=== PATIENT | female | born 1960 | race African-American/Black ===

== ENCOUNTER 2016-09-11 06:03 | Emergency (ER) | payer MEDICAID ==
[~2016-09-11] VITALS: Ht 170.2 cm; Wt 76.2 kg
[~2016-09-11 06:03] MED LIST: ALBUTEROL SULF8.5 GM INH; ALBUTEROL2.5 MG/3 M HHN; AMBIEN10 MG ORAL; AMITRIPTYLINE H10 MG ORAL; AMOXICILLIN500 MG ORAL; AMOXICILLIN500 MG PO; ATIVAN0.5 MG ORAL; ATIVAN1 MG ORAL; AUGMENTIN 875-1 EAC1 ORAL; BENADRYL25 MG PO; BENADRYL50 MG ORAL; CIPROFLOXACIN500 M2 ORAL; CORTISPORIN EAR10 M1 BOTH EARS; CYCLOBENZAPRINE10 MG ORAL; DIPHENHYDRAMINE50 M1 PO; IBUPROFEN600 MG ORAL; IBUPROFEN600 MG PO; IBUPROFEN800 M1 PO; KEFLEX500 MG ORAL; KLONOPIN1 MG PO; NORCO 10-325 T1 EACH PO; NORCO 5-325 TA1 EACH ORAL; PERCOCET 5-3251 EACH ORAL; PHENAZOPYRIDIN200 MG ORAL; PROTONIX40 MG ORAL; RISPERDAL0.25 MG ORAL; TRAMADOL HCL50 MG ORAL; VALIUM5 MG PO; ZYPREXA10 M1 PO; ZYPREXA10 MG ORAL; ZYPREXA5 MG PO
[2016-09-11 06:15] VITALS: BP 130/96
[2016-09-11] MEDS ORDERED: Ketorolac 60mg Inj IM ONE (06:30)
[2016-09-11] MEDS ORDERED: TRAMADOL HCL50 MG ORAL (06:32)
[2016-09-11] MEDS ORDERED: PSEUDOEPHEDRINE60 MG PO (06:32)
--- NOTE | 2016-09-11 06:33 | Emergency Room Report ---
History of Present Illness General Chief Complaint: Headache Source: Patient Present Illness HPI This is a 55-year-old female with a history of anxiety and asthma. She presents with chief complaint of headache. She has congestion runny nose. Itchy eyes. Also asthma attack yesterday. Now complaining of diffuse headache. 10 out of 10. Throbbing in nature. She took codeine which did not help much. Benadryl help. Also take Advil. Denies any nausea vomiting. Denies any focal deficit. Allergies: Coded Allergies: CODEINE (Verified Allergy, Intermediate, Rash, 09/02/14) ASPIRIN (Verified Allergy, Mild, VOMITING, 09/02/14) MORPHINE (Verified Allergy, Unknown, 02/15/16) Patient History Past Medical History: see triage record, old chart reviewed, asthma, migraines Pertinent Family History: none Social History: Denies: smoking Now: No Immunizations: other Reviewed Nursing Documentation: PMH: Agreed, PSxH: Agreed Nursing Documentation-PMH Hx Cardiac Problems: No Hx Hypertension: No Hx Pacemaker: No Hx Asthma: Yes Hx Diabetes: No Hx Cancer: No Hx Gastrointestinal Problems: No Hx Dialysis: No History Of Psychiatric Problem: Yes - EXPLOSIVE BEHAVIOR DISORDER Hx Neurological Problems: No Hx Cerebrovascular Accident: No Hx Seizures: No Review of Systems Eye: Reports: nose pain, Denies: blurred vision, eye pain ENT: Reports: ear pain, Denies: nose congestion, throat swelling Respiratory: Reports: cough, Denies: shortness of breath Cardiovascular: Denies: chest pain, palpitations Gastrointestinal: Denies: abdominal pain, diarrhea, nausea, vomiting Musculoskeletal: Denies: back pain, joint pain Skin: Denies: rash Neurological: Reports: headache, Denies: numbness Endocrine: Denies: increased thirst, increased urine Hematologic/Lymphatic: Denies: easy bruising All Other Systems: negative except mentioned in HPI Physical Exam Vital Signs Date Time Temp Pulse Resp B/P Pulse Ox O2 Delivery O2 Flow Rate FiO2 09/11/16 06:12 98.2 95 18 135/94 93 Room Air vitals normal Sp02 EP Interpretation: reviewed, normal - Repeat pulse ox is 98% on room air General Appearance: well appearing, no apparent distress, alert Head: normocephalic, atraumatic Eyes: bilateral eye EOMI, bilateral eye PERRL ENT: hearing grossly normal, normal pharynx Neck: full range of motion, supple, no meningismus Respiratory: chest non-tender, lungs clear, normal breath sounds Cardiovascular #1: regular rate, rhythm, no murmur Gastrointestinal: normal bowel sounds, non tender, no mass, no organomegaly, no bruit, non-distended Musculoskeletal: back normal, gait/station normal, normal range of motion Neurologic: alert, oriented x3 Psychiatric: anxious Skin: warm/dry Medical Decision Making Diagnostic Impression: Primary Impression: Viral illness Additional Impressions: Sinus headache anxiety reaction ER Course She presents with a viral illness with a sinus headache. No red flags indicate meningitis, sepsis, pneumonia, bleed. We'll discharge home. She is extremely anxious. Told to take her anxiety medication. Last Vital Signs Date Time Temp Pulse Resp B/P Pulse Ox O2 Delivery O2 Flow Rate FiO2 09/11/16 06:12 98.2 95 18 135/94 93 Room Air Status: improved Disposition: HOME, SELF-CARE Condition: Stable Scripts Tramadol Hcl* (ULTRAM*) 50 Mg Tablet 50 MG ORAL Q6H Y for For Pain, #20 TAB 0 Refills Prov: DEXTER LAST M.D. 09/11/16 Pseudoephedrine Hcl* (SUDAFED*) 60 Mg Tablet 60 MG PO Q6H, #30 TAB Prov: DEXTER LAST M.D. 09/11/16 Patient Instructions: Sinus Headache Additional Instructions: Followup with your DrCaity in 2-3 days. Return if symptom worsen. DEXTER LAST M.D. Sep 11, 2016 06:33
[2016-09-11 06:50] VITALS: BP 126/92
== END 2016-09-11 06:50 | disposition home or self-care (01) ==
LOC: EMR 06:25
DX: B34.9 Viral infection, unspecified (principal); F41.9 Anxiety disorder, unspecified; J45.909 Unspecified asthma, uncomplicated; Z88.6 Allergy status to analgesic agent
CPT/HCPCS: 96372; 99284

== ENCOUNTER 2016-12-21 18:53 | Emergency (ER) | payer MEDICAID ==
[~2016-12-21] VITALS: Ht 170.2 cm; Wt 74.8 kg
[~2016-12-21 18:53] MED LIST changes: +PSEUDOEPHEDRINE60 MG PO
--- NOTE | 2016-12-21 19:23 | Emergency Room Report ---
History of Present Illness General Chief Complaint: General Complaint Source: Patient, Medical Record Present Illness HPI 56-year-old male presents emergency department complaining of nasal congestion, purulent rhinorrhea, and sinus pressure x8 days. Patient reports one month ago she had similar episode that resolved after 2 weeks of czcu-cgz-gobsjhy treatment however patient states her symptoms have returned. Patient also reports acute onset of small blisters inside the left nostril x4 days. Patient denies history of shingles or chickenpox. denies fevers or chills, denies neck pain/stiffness. Patient reports pain behind the eyes bilaterally that radiates up into the forehead pt reports increased lacrimation. Denies photophobia denies changes in vision. Denies CP, Palpitations, LOC, AMS, dizziness, Changes in Vision, Sensation, paresthesias, or a sudden severe headache. She reports severe tenderness/10 sensitivity to the lesions on the nose. Denies history of immunocompromise recent travel or ill contacts patient denies history of rash or lesions elsewhere. Allergies: Coded Allergies: CODEINE (Verified Allergy, Intermediate, Rash, 09/02/14) ASPIRIN (Verified Allergy, Mild, VOMITING, 09/02/14) MORPHINE (Verified Allergy, Unknown, 02/15/16) Patient History Past Medical History: see triage record Past Surgical History: none Pertinent Family History: none Now: No Immunizations: UTD Reviewed Nursing Documentation: PMH: Agreed, PSxH: Agreed Nursing Documentation-PMH Hx Cardiac Problems: No Hx Hypertension: No Hx Pacemaker: No Hx Asthma: Yes Hx Diabetes: No Hx Cancer: No Hx Gastrointestinal Problems: No Hx Dialysis: No Hx Neurological Problems: No Hx Cerebrovascular Accident: No Hx Seizures: No Review of Systems All Other Systems: negative except mentioned in HPI Physical Exam Vital Signs Date Time Temp Pulse Resp B/P Pulse Ox O2 Delivery O2 Flow Rate FiO2 12/21/16 19:03 97.9 86 16 147/92 99 Room Air Sp02 EP Interpretation: reviewed, normal General Appearance: no apparent distress, alert, GCS 15, non-toxic Head: normocephalic, atraumatic Eyes: left eye fluoroscene uptake - no fluoroscene uptake, no evidence of keratitis noted on slit lamp examination of pt. , bilateral eye EOMI, bilateral eye PERRL, bilateral eye normal inspection ENT: hearing grossly normal, normal pharynx, no angioedema, normal voice, nasal congestion, other - multiple vesicles noted to the left nare, and the left side of the tip of the nose, no lesions noted in the the right nare. the rash does not migrate. severe sensitivity and tenderness, mild crusting noted. Pt. also has TTP to the left maxillary and frontal sinuses. Neck: full range of motion, supple/symm/no masses Respiratory: chest non-tender, lungs clear, normal breath sounds, no wheezing, speaking full sentences Cardiovascular #1: regular rate, rhythm, no edema, normal capillary refill Musculoskeletal: back normal, gait/station normal, normal range of motion, non- tender Neurologic: alert, oriented x3, responsive, motor strength/tone normal, sensory intact, speech normal Psychiatric: judgement/insight normal, memory normal, mood/affect normal Skin: normal color, warm/dry, well hydrated, rash - several vesicular lesions noted in the left nare, clear crusting noted, mild erythema Lymphatic: no adenopathy Medical Decision Making PA Attestation Dr. Arce is my supervising Physician whom patient management has been discussed with. Diagnostic Impression: Primary Impression: Sinusitis, acute maxillary Qualified Codes: J01.01 - Acute recurrent maxillary sinusitis Additional Impression: Localized vesicular eruption ER Course Ddx considered but are not limited to URI, pneumonia, PE, strep pharyngitis, meningitis, sinusitis, zoster ophthalmicus, zoster, impetigo Vital signs: Pt. is afebrile, the remaining VS are WNL H&PE are most consistent with Re-current Sinusitis, and vesicular eruption of the left nare. ORDERS: none required at this time, the diagnosis is clinical ED INTERVENTIONS: -Fluorescein stain with slit lamp evaluation: no evidence of uptake, no evidence of keratitis/ dendritic lesions. pt. does not have photophobia upon slit lamp examination and mandujano lamp evaluation. -Tylenol 650mg PO --PT. EDUCATION: Discussed with pt. that I will be treating her for both sinusitis- recurrent and non-responsive to OTC medications for over 10 days, and with anti-virals as lesions are suspicious for zoster. D/w pt. proper follow up with PCP, and to return with worsening or new symptoms. DISCHARGE: At this time pt. is stable for d/c to home. Will provide printed patient care instructions, and any necessary prescriptions. Care plan and follow up instructions have been discussed with the patient prior to discharge. Last Vital Signs Date Time Temp Pulse Resp B/P Pulse Ox O2 Delivery O2 Flow Rate FiO2 12/21/16 19:03 97.9 86 16 147/92 99 Room Air Disposition: HOME, SELF-CARE Condition: Stable Scripts Pseudoephedrine Hcl* (NEXAFED*) 30 Mg Tablet 30 MG ORAL Q6H Y for congestion for 3 Days, #20 TAB Prov: Janice Rothman 12/21/16 Amoxicillin/Potassium Clav 875-125* (AUGMENTIN 875-125 TABLET*) 1 Each Tablet 1 TAB ORAL TWICE A DAY for 10 Days, #20 TAB Prov: Janice Rothman 12/21/16 Valacyclovir Hcl* (VALTREX*) 500 Mg Tablet 1000 MG ORAL Q8HR for 7 Days, #21 TAB Prov: Janice Rothman. 12/21/16 Patient Instructions: Shingles, [id number], Sinusitis, Adult, Kpsu-vp-[id number] Additional Instructions: Take medications as directed. Follow up with PCP in 3-5 days Return sooner to ED if new symptoms occur, or current symptoms become worse. - Please note that this Emergency Department Report was dictated using Plistenmultiple wire sawyer technology software, occasionally this can lead to erroneous entry secondary to interpretation by the dictation equipment. Janice Rothman December 21, 2016 19:23
[2016-12-21] MEDS ORDERED: Tetracaine 0.5% Opth Soln LEFT EYE ONE (19:45)
[2016-12-21] MEDS ORDERED: Fluorescein Strips LEFT EYE ONE (19:45)
[2016-12-21] MEDS ORDERED: AUGMENTIN 875-1 EAC1 ORAL (20:15)
[2016-12-21] MEDS ORDERED: VALACYCLOVIR500 MG ORAL (20:15)
[2016-12-21] MEDS ORDERED: NEXAFED30 MG ORAL (20:15)
[2016-12-21 20:35] VITALS: BP 147/92
== END 2016-12-21 20:35 | disposition home or self-care (01) ==
LOC: EMR 19:46
DX: J01.00 Acute maxillary sinusitis, unspecified (principal); R23.8 Other skin changes; J45.909 Unspecified asthma, uncomplicated; Z88.6 Allergy status to analgesic agent
CPT/HCPCS: 99284

== ENCOUNTER 2017-07-08 07:02 | Emergency (ER) | payer MEDICAID ==
[~2017-07-08] VITALS: Ht 170.2 cm; Wt 76.2 kg
[~2017-07-08 07:02] MED LIST changes: +NEXAFED30 MG ORAL; +VALACYCLOVIR500 MG ORAL
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
[2017-07-08] MEDS: Norco 5mg/325mg tab ORAL ONE (07:34)
[2017-07-08] MEDS ORDERED: NORCO 5-325 TA1 EACH ORAL (07:51)
[2017-07-08] MEDS ORDERED: IBUPROFEN600 MG ORAL (07:51)
[2017-07-08 08:24] VITALS: BP 148/87
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
== END 2017-07-08 08:25 | disposition home or self-care (01) ==
LOC: EMR 07:50
DX: S90.111A Contusion of right great toe without damage to nail, initial encounter (principal); X58.XXXA Exposure to other specified factors, initial encounter; Y92.89 Other specified places as the place of occurrence of the external cause; J45.909 Unspecified asthma, uncomplicated; Z88.6 Allergy status to analgesic agent
CPT/HCPCS: 29540; 99284

== ENCOUNTER 2017-07-28 05:05 | Emergency (ER) | payer MEDICAID ==
[~2017-07-28] VITALS: Ht 170.2 cm; Wt 74.8 kg
[2017-07-28 05:45] VITALS: BP 141/90
--- NOTE | 2017-07-28 06:56 | Emergency Room Report ---
History of Present Illness General Chief Complaint: Flu Like Symptoms Source: Patient, Medical Record Present Illness HPI The patient states she has had flulike symptoms for the past week. She describes sinus congestion, nasal congestion, cough and difficulty breathing. She states that she feels terrible. She does have a history of asthma. She has been taking [place] flu and Benadryl. She states she also developed some blisters around her nose. She denies sputum production. She does have some chest pain with coughing. She denies sore throat. She denies nausea or vomiting. She has no other complaints. Allergies: Coded Allergies: CODEINE (Verified Allergy, Intermediate, Rash, 09/02/14) ASPIRIN (Verified Allergy, Mild, VOMITING, 09/02/14) MORPHINE (Verified Allergy, Unknown, 02/15/16) Patient History Past Medical History: see triage record, asthma Past Surgical History: none Social History: Denies: smoking, alcohol use, drug use Last Menstrual Period: none Now: No : 1 Para: 1 Reviewed Nursing Documentation: PMH: Agreed, PSxH: Agreed Nursing Documentation-PMH Hx Cardiac Problems: No Hx Hypertension: No Hx Pacemaker: No Hx Asthma: Yes Hx Diabetes: No Hx Cancer: No Hx Gastrointestinal Problems: No Hx Dialysis: No Hx Neurological Problems: No Hx Cerebrovascular Accident: No Hx Seizures: No Review of Systems All Other Systems: negative except mentioned in HPI Physical Exam Vital Signs Date Time Temp Pulse Resp B/P (MAP) Pulse Ox O2 Delivery O2 Flow Rate FiO2 07/28/17 05:27 98.1 83 15 141/90 96 Room Air Sp02 EP Interpretation: reviewed, normal General Appearance: no apparent distress, alert, GCS 15, non-toxic Head: normocephalic, atraumatic Eyes: bilateral eye normal inspection, bilateral eye PERRL ENT: hearing grossly normal, normal pharynx, no angioedema, normal voice, TMs + canals normal, uvula midline, nasal congestion, other - vesicular lesions around nares, tenderness around of the frontal and maxillary sinuses. Neck: full range of motion, no meningismus, supple/symm/no masses Respiratory: chest non-tender, no respiratory distress, no retraction, no accessory muscle use, rhonchi, speaking full sentences Cardiovascular #1: regular rate, rhythm, no edema Gastrointestinal: normal bowel sounds, non tender, soft, non-distended, no guarding, no rebound Rectal: deferred Musculoskeletal: back normal, gait/station normal, normal range of motion, non- tender Neurologic: alert, oriented x3, responsive, motor strength/tone normal, sensory intact, speech normal Psychiatric: judgement/insight normal, memory normal, mood/affect normal, no suicidal/homicidal ideation Skin: normal color, no rash, warm/dry, well hydrated Medical Decision Making Diagnostic Impression: Primary Impression: Sinusitis Additional Impressions: Localized vesicular eruption Bronchitis Asthma exacerbation ER Course This patient has a clinical presentation consistent with influenza/sinusitis/ bronchitis and a viral syndrome. She also has sinusitis and bronchitis. Patient overall is nontoxic with no evidence of pneumonia on chest x-ray. There does not appear to be any emergency complications. She does have a history of asthma. I will put her on azithromycin for her sinusitis. This patient is nontoxic and has no respiratory distress. I do not feel this patient needs admission at this time. The patient stable vital signs. The patient given close return precautions and followup instructions. Laboratory Tests Test 07/28/17 07:20 White Blood Count 4.7 K/UL (4.8-10.8) L Red Blood Count 4.19 M/UL (4.20-5.40) L Hemoglobin 13.3 G/DL (12.0-16.0) Hematocrit 41.4 % (37.0-47.0) Mean Corpuscular Volume 99 FL (80-99) Mean Corpuscular Hemoglobin 31.7 PG (27.0-31.0) H Mean Corpuscular Hemoglobin Concent 32.1 G/DL (32.0-36.0) Red Cell Distribution Width 12.5 % (11.6-14.8) Platelet Count 268 K/UL (150-450) Mean Platelet Volume 7.1 FL (6.5-10.1) Neutrophils (%) (Auto) 45.8 % (45.0-75.0) Lymphocytes (%) (Auto) 38.2 % (20.0-45.0) Monocytes (%) (Auto) 10.3 % (1.0-10.0) H Eosinophils (%) (Auto) 3.3 % (0.0-3.0) H Basophils (%) (Auto) 2.6 % (0.0-2.0) H Sodium Level 140 MMOL/L (136-145) Potassium Level 4.3 MMOL/L (3.5-5.1) Chloride Level 105 MMOL/L (98-107) Carbon Dioxide Level 27 MMOL/L (21-32) Anion Gap 8 mmol/L (5-15) Blood Urea Nitrogen 18 mg/dL (7-18) Creatinine 1.0 MG/DL (0.55-1.30) Estimate Glomerular Filtration Rate > 60 mL/min (>60) Glucose Level 98 MG/DL (74-106) Calcium Level 9.3 MG/DL (8.5-10.1) Total Bilirubin 0.3 MG/DL (0.2-1.0) Aspartate Amino Transferase (AST) 20 U/L (15-37) Alanine Aminotransferase (ALT) 24 U/L (12-78) Alkaline Phosphatase 48 U/L (46-116) Total Protein 7.4 G/DL (6.4-8.2) Albumin 3.7 G/DL (3.4-5.0) Globulin 3.7 g/dL Albumin/Globulin Ratio 1.0 (1.0-2.7) Microbiology Date/Time Source Procedure Growth Status 07/28/17 07:20 Nasal Nares Influenza Types A,B Antigen (RIYA) - Final Complete EKG Diagnostic Results Rate: normal Rhythm: NSR ST Segments: no acute changes Rhythm Strip Diag. Results EP Interpretation: yes Rate: 70's Rhythm: NSR, no PVC's, no ectopy Chest X-Ray Diagnostic Results Chest X-Ray Diagnostic Results : Chest X-Ray Ordered: Yes # of Views/Limited/Complete: 1 View Indication: Shortness of Breath EP Interpretation: Yes Interpretation: no consolidation, no effusion, no pneumothorax, no acute cardiopulmonary disease Impression: No acute disease Electronically Signed by: Leandro Last Vital Signs Date Time Temp Pulse Resp B/P (MAP) Pulse Ox O2 Delivery O2 Flow Rate FiO2 07/28/17 05:27 98.1 83 15 141/90 96 Room Air Status: improved Disposition: HOME, SELF-CARE Condition: Improved Referrals: [facility],REFERRING (PCP) KOKO GONCALVES D.O. Jul 28, 2017 06:56
[2017-07-28] MEDS ORDERED: Ipratropium 0.02% Inh Soln 2.5ml UD HHN ONE (07:00)
[2017-07-28] MEDS ORDERED: Albuterol ud Inhalation HHN ONE (07:00)
[2017-07-28 07:32] VITALS: BP 134/81
[2017-07-28 07:36] LABS: BASOPHILS % (AUTO) 2.6 % (0.0-2.0); EOSINOPHILS % (AUTO) 3.3 % (0.0-3.0); LYMPHOCYTES % (AUTO) 38.2 % (20.0-45.0); MEAN CORPUSCULAR HEMOGLOBIN 31.7 PG (27.0-31.0); MEAN CORPUSCULAR HGB CONC 32.1 G/DL (32.0-36.0); MEAN CORPUSCULAR VOLUME 99 FL (80-99); MEAN PLATELET VOLUME 7.1 FL (6.5-10.1); MONOCYTES % (AUTO) 10.3 % (1.0-10.0); NEUTROPHILS % (AUTO) 45.8 % (45.0-75.0); PLATELET COUNT 268 K/UL (150-450); RED BLOOD COUNT 4.19 M/UL (4.20-5.40); RED CELL DISTRIBUTION WIDTH 12.5 % (11.6-14.8); WHITE BLOOD COUNT 4.7 K/UL (4.8-10.8)
[2017-07-28 07:45] LABS: ANION GAP 8 mmol/L (5-15); CALCIUM 9.3 MG/DL (8.5-10.1); CARBON DIOXIDE 27 MMOL/L (21-32); CHLORIDE 105 MMOL/L (98-107); GLOMERULAR FILTRATION RATE > 60 mL/min (>60); POTASSIUM 4.3 MMOL/L (3.5-5.1); SODIUM 140 MMOL/L (136-145)
[2017-07-28] MEDS ORDERED: Acetaminophen 500mg (ES) tab ORAL ONE (07:45)
[2017-07-28 07:49] LABS: ALANINE AMINOTRANSFERASE 24 U/L (12-78); ASPARTATE AMINO TRANSFERASE 20 U/L (15-37); TOTAL PROTEIN 7.4 G/DL (6.4-8.2)
[2017-07-28] MEDS ORDERED: IBUPROFEN600 MG ORAL (08:28)
[2017-07-28] MEDS ORDERED: ALBUTEROL SULF8.5 GM INH (08:28)
[2017-07-28] MEDS ORDERED: AQUAPHOR HEALIN50 GM TP (08:28)
[2017-07-28] MEDS ORDERED: SUDAFED PE PRE1 EAC2 PO (08:28)
[2017-07-28] MEDS ORDERED: ZITHROMAX250 MG ORAL (08:28)
[2017-07-28 08:49] VITALS: BP 131/79
[2017-07-28 08:50] VITALS: BP 131/79
--- NOTE | 2017-07-28 10:47 | Diagnostic Imaging Report ---
Indication: Reason For Exam: SOB Technique: One view of the chest Comparison: 05/23/2014 Findings: Lungs and pleural spaces are clear. Heart size is normal . No significant change Impression: No acute process
--- NOTE | 2017-07-30 00:24 | Cardiology Report ---
APPROVED REPORT EKG Measurement Heart [id number] Normal sinus rhythm Possible Left atrial enlargement Borderline ECG
== END 2017-07-28 08:51 | disposition home or self-care (01) ==
LOC: EMR 05:43
DX: J32.9 Chronic sinusitis, unspecified (principal); R23.8 Other skin changes; J45.901 Unspecified asthma with (acute) exacerbation; Z88.6 Allergy status to analgesic agent
CPT/HCPCS: 36415; 71010; 80053; 85025; 86710; 93005; 94640; 94664; 96360; 99284; J7512

== ENCOUNTER 2018-02-07 18:24 | Emergency (ER) | payer MEDICAID ==
[~2018-02-07] VITALS: Ht 170.2 cm; Wt 74.8 kg
[~2018-02-07 18:24] MED LIST changes: +AQUAPHOR HEALIN50 GM TP; +SUDAFED PE PRE1 EAC2 PO; +ZITHROMAX250 MG ORAL
[2018-02-07] MEDS ORDERED: Ketorolac 30mg Inj IM ONE (19:00)
[2018-02-07] MEDS ORDERED: Norco 5mg/325mg tab ORAL ONE (19:15)
--- NOTE | 2018-02-07 19:33 | Emergency Room Report ---
History of Present Illness General Chief Complaint: General Complaint Source: Patient Present Illness HPI 57-year-old female patient presents ER complaining of right knee pain. Reports pain has been present for 3 weeks. Reports pain is radiating up and down her leg. Denies history of injury. Denies history of similar symptoms. Reports been taking Aleve for relief of pain. Denies other acute symptoms. Denies aggravating or relieving factors. Denies fever, chest pain, shortness of breath , abdominal pain. Denies history of DVT or PE. Reports not taking any blood thinners. requests Dilaudid for pain relief. reports history of explosive behavioral disorder, takes medications every day. Allergies: Coded Allergies: CODEINE (Verified Allergy, Intermediate, Rash, 09/02/14) ASPIRIN (Verified Allergy, Mild, VOMITING, 09/02/14) MORPHINE (Verified Allergy, Unknown, 02/15/16) Patient History Past Medical History: see triage record Reviewed Nursing Documentation: PMH: Agreed; PSxH: Agreed Nursing Documentation-PMH Past Medical History: No History, Except For Hx Cardiac Problems: No Hx Hypertension: No Hx Pacemaker: No Hx Asthma: Yes Hx COPD: No Hx Diabetes: No Hx Cancer: No Hx Gastrointestinal Problems: No Hx Dialysis: No History Of Psychiatric Problem: Yes - Explosive behavior disorder Hx Neurological Problems: No Hx Cerebrovascular Accident: No Hx Seizures: No Review of Systems All Other Systems: negative except mentioned in HPI Physical Exam Vital Signs Date Time Temp Pulse Resp B/P (MAP) Pulse Ox O2 Delivery O2 Flow Rate FiO2 02/07/18 18:28 98.6 95 15 142/91 95 Room Air 98.6 Sp02 EP Interpretation: reviewed, normal General Appearance: well appearing, no apparent distress, alert, GCS 15, non- toxic Head: normocephalic, atraumatic Eyes: bilateral eye normal inspection, bilateral eye PERRL ENT: hearing grossly normal, normal pharynx, no angioedema, normal voice, uvula midline, moist mucus membranes Neck: full range of motion Respiratory: lungs clear, normal breath sounds, no rhonchi, no respiratory distress, no accessory muscle use, no wheezing, speaking full sentences Cardiovascular #1: regular rate, rhythm, no edema Cardiovascular #2: 2+ dorsalis pedis (R), 2+ dorsalis pedis (L) Musculoskeletal: back normal, digits/nails normal, gait/station normal, normal range of motion, no calf tenderness - no calf swelling or erythema, Terrance's Sign negative, other - no joint laxity, no bony deformity, tender Neurologic: alert, oriented x3, responsive, motor strength/tone normal, sensory intact Psychiatric: mood/affect normal Skin: no rash - no erythema, no warmth to touch, no Tophi Medical Decision Making PA Attestation Dr. Phan is my supervising Physician whom patient management has been discussed with. Diagnostic Impression: Primary Impression: Knee pain, right ER Course Pt. presents to the ED c/o right knee pain. Ddx considered but are not limited to fracture, sprain, strain, contusion, dislocation. No erythema, no warmth to touch, no fever, nontoxic appearing, low suspicion for septic joint. no erythema, no warmth to touch, no Tophi, low suspicion for gout. negative Homans sign, no calf swelling, erythema, edema, low suspicion for DVT. Vital signs: are WNL, pt. is afebrile Ordered X-ray and pain medication. ER COURSE reviewed CURES, benzo prescription given monthly no narcotic prescriptions. Patient reports GI distress/ allergy when taking for pain medications including Tylenol, ibuprofen, [place], Ultram, morphine. discussed pain medication options with her, states [place] has taken in the past however experience vomiting symptoms per patient. Will provide Zofran with pain medication. Provided with pain medication. Patient tolerated pain medication without difficulty, no vomiting or GI distress , no allergic reaction. An X-ray of the right knee shows no acute disease per the preliminary reading. Jefe wrap was applied to the right knee and was checked afterwards by me showing good alignment and support with distal neurovascular functioning intact. Patient instructed on RICE method: rest, ice, compression, elevation. Patient instructed on rest, ice and heat. Patient instructed to be WBAT Patient observed walking in the ER without difficulty, ambulating independently , no limp. Patient okay for discharge home. Followup with primary care provider. Discuss referral to ortho/pain management/ PT as needed. Discuss further imaging with MRI/CT as needed. DISCHARGE: -Rx provided for Aleve for pain symptoms. At this time pt. is stable for d/c to home. Patient is resting comfortably, in no acute distress, nontoxic appearing, talking without difficulty. Will provide printed patient care instructions, and any necessary prescriptions. Patient instructed to follow with primary care provider in 3 - 5 days and to request further follow-up as needed. Care plan and follow up instructions have been discussed with the patient prior to discharge. Take medications as directed. Patient questions asked and answered. Patient reports understanding and agreement to treatment plan. ER precautions given, patient instructed to return to ER immediately for any new or worsening of symptoms. - Please note that this Emergency Department Report was dictated using [employer] tour technology software, occasionally this can lead to erroneous entry secondary to interpretation by the dictation equipment. Other X-Ray Diagnostic Results Other X-Ray Diagnostic Results : X-Ray ordered: right knee # of Views/Limited Vs Complete: 3 View Indication: Pain EP Interpretation: Yes PA Xray: Interpretation reviewed, by supervising MD, and agrees with findings. Interpretation: no dislocation, no soft tissue swelling, no fractures Impression: No acute disease ABBI Scribe Text Nino Lutz PA-C Last Vital Signs Date Time Temp Pulse Resp B/P (MAP) Pulse Ox O2 Delivery O2 Flow Rate FiO2 02/07/18 19:27 98.6 02/07/18 18:28 95 15 142/91 95 Room Air Disposition: HOME, SELF-CARE Condition: Stable Scripts Naproxen Sodium (ALEVE) 220 Mg Tablet 220 MG PO TID, #30 TAB Prov: Byron Lutz 02/07/18 [facility] (PCP) Patient Instructions: Knee Pain, [id number] Additional Instructions: Patient instructed to follow up with primary care provider and discuss further referral to orthopedics. Patient instructed on RICE method: rest, ice, compression, elevation. Patient instructed to WBAT. Take medications as directed. Patient questions asked and answered. ER precautions given, patient instructed to return to ER immediately for any new or worsening of symptoms. Byron Lutz Feb 07, 2018 19:33
--- NOTE | 2018-02-07 20:00 | Diagnostic Imaging Report ---
EXAM: XR Right Knee, 3 views CLINICAL HISTORY: PAIN TECHNIQUE: Three views of the right knee. COMPARISON: No relevant prior studies available. FINDINGS: Bones/joints: Unremarkable. No acute fracture. No dislocation. Soft tissues: Unremarkable. IMPRESSION: Normal right knee x-rays.
[2018-02-07] MEDS ORDERED: ALEVE220 MG PO (20:26)
[2018-02-07 20:27] VITALS: BP 136/92
[2018-02-07 20:37] VITALS: BP 136/92
== END 2018-02-07 20:37 | disposition home or self-care (01) ==
LOC: EMR 19:04
DX: M25.561 Pain in right knee (principal); J45.909 Unspecified asthma, uncomplicated; Z88.5 Allergy status to narcotic agent; Z88.6 Allergy status to analgesic agent
CPT/HCPCS: 73562; 96372; 99283; J1885

== ENCOUNTER 2018-04-10 07:20 | Emergency (ER) | payer MEDICAID ==
[~2018-04-10] VITALS: Ht 162.6 cm; Wt 74.8 kg
[~2018-04-10 07:20] MED LIST changes: +ALEVE220 MG PO
[2018-04-10 07:35] VITALS: BP 148/88
--- NOTE | 2018-04-10 07:41 | Emergency Room Report ---
History of Present Illness General Chief Complaint: Pain Source: Patient Present Illness HPI Patient presents with complaints of pain to the rectal region She reports that on Tuesday she had increased pain felt a mass She had put Preparation H However this morning felt that the pain had worsened 10 out of 10 denies any fevers or chills denies any trauma Denies any constipation Allergies: Coded Allergies: CODEINE (Verified Allergy, Intermediate, Rash, 09/02/14) ASPIRIN (Verified Allergy, Mild, VOMITING, 09/02/14) MORPHINE (Verified Allergy, Unknown, 02/15/16) Patient History Past Medical History: see triage record Pertinent Family History: none Now: No Reviewed Nursing Documentation: PMH: Agreed; PSxH: Agreed Nursing Documentation-PMH Hx Cardiac Problems: No Hx Hypertension: No Hx Pacemaker: No Hx Asthma: Yes Hx COPD: No Hx Diabetes: No Hx Cancer: No Hx Gastrointestinal Problems: No Hx Dialysis: No Hx Neurological Problems: No Hx Cerebrovascular Accident: No Hx Seizures: No Review of Systems All Other Systems: negative except mentioned in HPI Physical Exam Vital Signs Date Time Temp Pulse Resp B/P (MAP) Pulse Ox O2 Delivery O2 Flow Rate FiO2 04/10/18 07:28 98.4 98 26 148/88 98 Room Air 98.4 Sp02 EP Interpretation: reviewed, normal General Appearance: mild distress - In acute pain Head: normocephalic, atraumatic Eyes: bilateral eye PERRL, bilateral eye EOMI ENT: normal pharynx, no angioedema Neck: supple Respiratory: lungs clear, normal breath sounds Cardiovascular #1: regular rate, rhythm Gastrointestinal: non tender, soft Rectal: other - Palpable thrombosed hemorrhoid at approximately 6:00 region, there is associated palpable firmness around the site as well Genitourinary: no CVA tenderness Musculoskeletal: normal inspection, back normal Neurologic: alert, oriented x3, responsive Skin: normal color, other - Rectal exam as above Lymphatic: no adenopathy Medical Decision Making Diagnostic Impression: Primary Impression: Jaye-rectal abscess ER Course Given the patient's history exam and presentation multiple differentials were entertained Patient's exam and discomfort is concerning for abscess Blood work is at baseline levels however CT imaging does confirm perirectal abscess Prostration antibiotics initiated IV fluids Gen. surgery consultation has been made and was seen in the emergency room Patient will have further antibiotic coverage Patient is accepted to [facility], secondary to insurance considerations And stabilize for further transfer Labs Test 04/10/18 07:47 White Blood Count 8.7 K/UL (4.8-10.8) Red Blood Count 4.37 M/UL (4.20-5.40) Hemoglobin 13.8 G/DL (12.0-16.0) Hematocrit 41.2 % (37.0-47.0) Mean Corpuscular Volume 94 FL (80-99) Mean Corpuscular Hemoglobin 31.7 PG (27.0-31.0) Mean Corpuscular Hemoglobin Concent 33.6 G/DL (32.0-36.0) Red Cell Distribution Width 11.8 % (11.6-14.8) Platelet Count 313 K/UL (150-450) Mean Platelet Volume 6.9 FL (6.5-10.1) Neutrophils (%) (Auto) 57.3 % (45.0-75.0) Lymphocytes (%) (Auto) 28.3 % (20.0-45.0) Monocytes (%) (Auto) 10.8 % (1.0-10.0) Eosinophils (%) (Auto) 1.9 % (0.0-3.0) Basophils (%) (Auto) 1.7 % (0.0-2.0) Sodium Level 138 MMOL/L (136-145) Potassium Level 4.1 MMOL/L (3.5-5.1) Chloride Level 103 MMOL/L (98-107) Carbon Dioxide Level 27 MMOL/L (21-32) Anion Gap 9 mmol/L (5-15) Blood Urea Nitrogen 11 mg/dL (7-18) Creatinine 0.9 MG/DL (0.55-1.30) Estimat Glomerular Filtration Rate > 60 mL/min (>60) Glucose Level 102 MG/DL (74-106) Calcium Level 9.7 MG/DL (8.5-10.1) CT/MRI/US Diagnostic Results CT/MRI/US Diagnostic Results : Impression CT abdomen pelvis: 4 cm perirectal/perianal abscess enhancing rim worsen for abscess Last Vital Signs Date Time Temp Pulse Resp B/P (MAP) Pulse Ox O2 Delivery O2 Flow Rate FiO2 04/10/18 07:35 98.4 98 26 148/88 98 Room Air 98.4 Status: improved Disposition: XFER SHT-TRM HOSP Condition: Serious Referrals: [facility] (PCP) Erika Arce DO Apr 10, 2018 07:41
[2018-04-10] MEDS ORDERED: DiphenhydrAMINE 50mg/ml Inj IVP ONE (07:45)
[2018-04-10] MEDS ORDERED: Hydromorphone 0.5mg/0.5ml inj IVP ONE (07:45)
[2018-04-10] MEDS ORDERED: Isovue-300 100ml vial INJ PRN (07:45)
[2018-04-10 08:12] LABS: BASOPHILS % (AUTO) 1.7 % (0.0-2.0); EOSINOPHILS % (AUTO) 1.9 % (0.0-3.0); HEMATOCRIT 41.2 % (37.0-47.0); HEMOGLOBIN 13.8 G/DL (12.0-16.0); LYMPHOCYTES % (AUTO) 28.3 % (20.0-45.0); MEAN CORPUSCULAR VOLUME 94 FL (80-99); MONOCYTES % (AUTO) 10.8 % (1.0-10.0); NEUTROPHILS % (AUTO) 57.3 % (45.0-75.0); PLATELET COUNT 313 K/UL (150-450); RED BLOOD COUNT 4.37 M/UL (4.20-5.40); RED CELL DISTRIBUTION WIDTH 11.8 % (11.6-14.8); WHITE BLOOD COUNT 8.7 K/UL (4.8-10.8)
[2018-04-10 08:14] LABS: ANION GAP 9 mmol/L (5-15); BLOOD UREA NITROGEN 11 mg/dL (7-18); CALCIUM 9.7 MG/DL (8.5-10.1); CARBON DIOXIDE 27 MMOL/L (21-32); CHLORIDE 103 MMOL/L (98-107); CREATININE 0.9 MG/DL (0.55-1.30); POTASSIUM 4.1 MMOL/L (3.5-5.1); SODIUM 138 MMOL/L (136-145)
[2018-04-10] MEDS ORDERED: HYDROmorphone 1mg/ml Carpuject IVP ONE ×2 (09:00→11:30)
[2018-04-10] MEDS ORDERED: LORazepam Inj 2mg/ml 1ml IV ONE (09:00)
[2018-04-10] MEDS ORDERED: Vancomycin 1.5gm/D5W 250ml 250 ML IVPB ONE (09:30)
[2018-04-10] MEDS ORDERED: Piperacillin/Tazobactam 3.375 GM in NS 110 ML IVPB ONE (09:30)
[2018-04-10 10:00] VITALS: BP 132/76
--- NOTE | 2018-04-10 10:05 | Consultation ---
History of Present Illness General Date patient seen: Apr 10, 2018 Chief Complaint: Pain Reason for Consultation: Jaye-rectal / Jaye-Anal Abscess Present Illness HPI 57 year old female with history of asthma presented with worsening jaye-rectal pain for 1-2 days. As per patient, she was in her normal state of health until yesterday when she began to note some rectal discomfort. Believed it was her hemorrhoids and attempted sitz bath as well as over the counter hemorrhoid creams without significant improvement. States she woke up this morning with 8/ 10 pain without radiation. Pain made it difficult for her to walk so she decided to come to ED for evaluation. Denies n/v/f/c. no drainage. hx of hemorrhoids but no similar prior history. In ED had CT which demonstrated jaye- rectal abscess. surgery called to evaluate. patient seen, chart reviewed, patient examined. Allergies: Coded Allergies: CODEINE (Verified Allergy, Intermediate, Rash, 09/02/14) ASPIRIN (Verified Allergy, Mild, VOMITING, 09/02/14) MORPHINE (Verified Allergy, Unknown, 02/15/16) Medication History Scheduled Amitriptyline Hcl* (Amitriptyline Hcl*), 20 MG ORAL BEDTIME, (Reported) Amoxicillin/Potassium Clav 875-125* (Augmentin 875-125 Tablet*), 1 TAB ORAL TWICE A DAY Amoxicillin/Potassium Clav 875-125* (Augmentin 875-125 Tablet*), 1 TAB ORAL TWICE A DAY Azithromycin* (Zithromax*), 250 MG ORAL see sig Clonazepam* (Klonopin*), 1 MG PO BID, (Reported) Diazepam* (Valium*), 5 MG PO TID Mineral Oil/Hydrophil Petrolat (Aquaphor Healing Ointment), 50 GM TP NEEDED Naproxen Sodium (Aleve), 220 MG PO TID Olanzapine* (Zyprexa*), 10 MG ORAL DAILY, (Reported) Phenylephrine HCl/Acetaminophn (Sudafed PE Pressure+Pain Cplt), 2 EACH PO Q4HR Pseudoephedrine Hcl* (Sudafed*), 60 MG PO Q6H Risperidone* (Risperdal*), 0.25 MG ORAL DAILY, (Reported) Valacyclovir Hcl* (Valtrex*), 1,000 MG ORAL Q8HR Scheduled PRN Albuterol Sulfate* (Albuterol Sulfate Mdi*), 2 PUFF INH Q4H PRN for For Cough Albuterol Sulfate* (Albuterol Sulfate Mdi*), 2 PUFF INH Q4H PRN for cough/ wheezing Hydrocodone Bit/Acetaminophen 5-325* ([place] 5-325*), 1 TAB ORAL Q6H PRN for For Pain Ibuprofen* (Motrin*), 600 MG ORAL Q8H PRN for For Pain Ibuprofen* (Motrin*), 600 MG ORAL Q8H PRN for For Pain Oxycodone/Acetaminophen 5-325* (Percocet 5-325 Mg Tablet*), 1 TAB ORAL Q6H PRN for For Pain Pseudoephedrine Hcl* (Nexafed*), 30 MG ORAL Q6H PRN for congestion Tramadol Hcl* (Ultram*), 50 MG ORAL Q6H PRN for For Pain Tramadol Hcl* (Ultram*), 50 MG ORAL Q6H PRN for For Pain Tramadol Hcl* (Ultram*), 50 MG ORAL Q6H PRN for For Pain Zolpidem Tartrate* (Ambien*), 10 MG ORAL BEDTIME PRN for Insomnia Patient History History Provided By: Patient, Medical Record, PMD Healthcare decision maker Resuscitation status Advanced Directive on File Past Medical/Surgical History Past Medical/Surgical History: (1) chest pain (2) anxiety reaction (3) tobacco abuse (4) Back pain (5) Back pain (6) UTI (lower urinary tract infection) (7) Sinusitis (8) Sinusitis (9) Bronchitis (10) Headache (11) Sinusitis (12) Headache (13) Headache (14) Knee sprain (15) Knee sprain (16) Insomnia (17) Encounter for medication refill (18) Rotator cuff injury (19) Knee strain (20) Cat scratch (21) Sinusitis, acute maxillary (22) Injury of lower extremity (23) Contusion (24) Localized vesicular eruption Review of Systems All Other Systems: negative except mentioned in HPI Physical Exam General Appearance: no apparent distress, alert Lines, tubes and drains: peripheral HEENT: normocephalic, atraumatic, anicteric, mucous membranes moist, PERRL Neck: non-tender, normal alignment, supple, normal inspection Respiratory/Chest: chest wall non-tender, lungs clear, normal breath sounds, no respiratory distress, no accessory muscle use Cardiovascular/Chest: normal peripheral pulses, normal rate, regular rhythm Abdomen: normal bowel sounds, non tender, soft, no organomegaly, no mass Genitourinary/Rectal: other - Left lateral fullness, tender, erythema, cellulitis, no drainage. cannot perform PAL secondary to pain at this time. hemorrhoidal tags noted. Extremities: normal range of motion, non-tender, normal inspection Skin Exam: normal pigmentation, warm/dry Neurologic: alert, oriented x 3, responsive Last 24 Hour Vital Signs Date Time Temp Pulse Resp B/P (MAP) Pulse Ox O2 Delivery O2 Flow Rate FiO2 04/10/18 09:30 98.4 04/10/18 09:00 98.4 04/10/18 08:16 98.4 04/10/18 07:46 98.4 04/10/18 07:35 98.4 98 26 148/88 98 Room Air 98.4 04/10/18 07:28 98.4 98 26 148/88 98 Room Air 98.4 Laboratory Tests Test 04/10/18 07:47 White Blood Count 8.7 K/UL (4.8-10.8) Red Blood Count 4.37 M/UL (4.20-5.40) Hemoglobin 13.8 G/DL (12.0-16.0) Hematocrit 41.2 % (37.0-47.0) Mean Corpuscular Volume 94 FL (80-99) Mean Corpuscular Hemoglobin 31.7 PG (27.0-31.0) H Mean Corpuscular Hemoglobin Concent 33.6 G/DL (32.0-36.0) Red Cell Distribution Width 11.8 % (11.6-14.8) Platelet Count 313 K/UL (150-450) Mean Platelet Volume 6.9 FL (6.5-10.1) Neutrophils (%) (Auto) 57.3 % (45.0-75.0) Lymphocytes (%) (Auto) 28.3 % (20.0-45.0) Monocytes (%) (Auto) 10.8 % (1.0-10.0) H Eosinophils (%) (Auto) 1.9 % (0.0-3.0) Basophils (%) (Auto) 1.7 % (0.0-2.0) Sodium Level 138 MMOL/L (136-145) Potassium Level 4.1 MMOL/L (3.5-5.1) Chloride Level 103 MMOL/L (98-107) Carbon Dioxide Level 27 MMOL/L (21-32) Anion Gap 9 mmol/L (5-15) Blood Urea Nitrogen 11 mg/dL (7-18) Creatinine 0.9 MG/DL (0.55-1.30) Estimat Glomerular Filtration Rate > 60 mL/min (>60) Glucose Level 102 MG/DL (74-106) Calcium Level 9.7 MG/DL (8.5-10.1) Height (Feet): 5 Height (Inches): 4.00 Weight (Pounds): 165 Medications Current Medications Medications (Trade) Dose Ordered Sig/Obdulio Route PRN Reason Start Time Stop Time Status Last Admin Dose Admin Iopamidol (Isovue-300 100ml) 100 ml NOW PRN INJ Radiology Procedure 04/10/18 07:45 Metronidazole 100 ml @ 100 mls/hr ONCE ONCE IVPB 04/10/18 09:30 04/10/18 10:29 04/10/18 09:31 Piperacillin Sod/ Tazobactam Sod 3.375 gm/Sodium Chloride 110 ml @ 220 mls/hr ONCE ONCE IVPB 04/10/18 09:30 04/10/18 09:59 04/10/18 09:53 Vancomycin HCl/ Dextrose 250 ml @ 125 mls/hr ONCE ONCE IVPB 04/10/18 09:30 04/10/18 11:29 Assessment/Plan Problem List: (1) Jaye-rectal abscess Assessment & Plan: 57F with acute jaye-rectal abscess. Afebrile, HD stable, labs okay. on exam has Left lateral fullness which is tender with surrounding erythema. no drainage or superficial aspect noted. CT reviewed and moderate sized abscess noted with surrounding cellulitis. abscess noted to be deeper and without skin level involvement. patient fairly uncomfortable and cannot perform full exam including PAL because of pain/discomfort Recommend I&D, washout, packing and dressings in OR. Would be too uncomfortable for patient at bedside given size and location. NPO IV Abx Consent OR tomorrow as today is a holiday Can safely transfer if necessary for insurance purposes. thank you for this consultation. ICD Codes: K61.1 - Rectal abscess SNOMED: 56646052 Status: stable OcKaran soliz Apr 10, 2018 10:05
[2018-04-10 12:37] VITALS: BP 127/68
[2018-04-10] MEDS ORDERED: fentaNYL 100 mcg/2 mL IV ONE ×2 (13:30→14:45)
[2018-04-10 14:52] VITALS: BP 127/68
--- NOTE | 2018-04-11 10:12 | Diagnostic Imaging Report ---
Clinical Indication: Abdominal pain Technique: No oral contrast utilized, per emergency room physician request IV administration nonionic contrast. Venous phase spiral acquisition obtained through the abdomen and pelvis. Multiplanar reconstructions were generated. Total dose length product 802.63 mGycm. CTDIvol(s) 16.38 mGy. Dose reduction achieved using automated exposure control Comparison: 08/06/2014 Findings: The appendix is not definitely visualized, but no findings to suggest acute appendicitis are evident. No evidence of diverticulosis or diverticulitis. No small bowel distention. No free or loculated intraperitoneal gas or fluid is evident. The distal esophagus, stomach, duodenum are unremarkable. The liver demonstrates multiple subcentimeter low-attenuation lesions which are too small to characterize. The gallbladder, bile ducts, pancreas are all unremarkable. The spleen demonstrates multiple calcifications. The adrenals and kidneys are unremarkable.. Previously demonstrated low-attenuation renal lesions are not apparent currently. Varicosities are seen in the bilateral adnexal regions. The uterus is unremarkable. No pelvic mass or adenopathy. The bladder is distended. There is a fluid collection which measures 2.6 by 2 cm in diameter within the perineum, appearing to be immediately adjacent to the anus. This demonstrates some rim enhancement and possibly a small gas bubble. This is not evident previously The included lung bases demonstrate posterior dependent atelectatic changes. The bones demonstrate minimal degenerative spondylosis changes. Impression: 2.6 x 2 cm diameter fluid collection in the left perianal region, concerning for perianal abscess No other acute abnormality Bilateral paraovarian varices, may indicate pelvic congestion. Correlate with any clinical history suggestive of pelvic congestion syndrome Subcentimeter low-attenuation liver lesions, too small to characterize, most likely benign simple cysts or bile hamartomas Other findings as noted, including minimal posterior dependent pulmonary atelectatic changes, degenerative spondylosis, granulomatous calcifications within the spleen This agrees with the preliminary interpretation provided overnight by [facility]erad[facility] service. The CT scanner at [facility] is accredited by the [employer] and the scans are performed using protocols designed to limit radiation exposure to as low as reasonably achievable to attain images of sufficient resolution adequate for diagnostic evaluation.
== END 2018-04-10 14:54 | disposition short-term general hospital (02) ==
LOC: EMR 07:31
DX: K61.1 Rectal abscess (principal); J45.909 Unspecified asthma, uncomplicated
CPT/HCPCS: 36415; 74177; 80048; 85025; 96365; 96366; 96367; 96368; 96375; 96376; 99285; J1170; J1200; J2543; J3010; J3370; Q9967

== ENCOUNTER 2018-08-20 07:24 | Emergency (ER) | payer MEDICAID ==
[~2018-08-20] VITALS: Ht 170.2 cm; Wt 72.6 kg
[2018-08-20] MEDS ORDERED: BENADRYL25 M3 PO (07:41)
[2018-08-20] MEDS ORDERED: ZYPREXA7.5 MG ORAL (07:41)
[2018-08-20 07:48] VITALS: BP 142/76
--- NOTE | 2018-08-20 07:50 | NUR ---
ED Nurse Note:pt. came with open abscess on left buttocks area with drainage
--- NOTE | 2018-08-20 08:12 | Emergency Room Report ---
History of Present Illness General Chief Complaint: Skin Rash/Abscess Source: Patient, Medical Record Present Illness HPI Patient presents with complaints of discharge and itching to her left buttock Wound Patient was here and seen by myself in April at that time diagnosed with a perirectal abscess Patient was transferred to [facility] secondary to insurance purposes and reports having surgery there Patient reports that the wound was left open and was allowed to heal from inside out It appears to be doing better and fully healing however after using a restroom about 7-10 days ago And finding out that it was extremely dirty she started having some increased discharge From the wound And now is having increased itching to the right buttock area Likely secondary to the discharge She also reports pain and discomfort to the site Patient has been having normal bowel movements otherwise denies any rectal pain Denies any fevers or chills Allergies: Coded Allergies: CODEINE (Verified Allergy, Intermediate, Rash, 09/02/14) ASPIRIN (Verified Allergy, Mild, VOMITING, 09/02/14) MORPHINE (Verified Allergy, Unknown, 02/15/16) Patient History Past Medical History: see triage record Pertinent Family History: none Reviewed Nursing Documentation: PMH: Agreed; PSxH: Agreed Nursing Documentation-PMH Hx Cardiac Problems: No Hx Hypertension: No Hx Pacemaker: No Hx Asthma: Yes Hx COPD: No Hx Diabetes: No Hx Cancer: No Hx Gastrointestinal Problems: No Hx Dialysis: No Hx Neurological Problems: No Hx Cerebrovascular Accident: No Hx Seizures: No Review of Systems All Other Systems: negative except mentioned in HPI Physical Exam Vital Signs Date Time Temp Pulse Resp B/P (MAP) Pulse Ox O2 Delivery O2 Flow Rate FiO2 08/20/18 07:28 98.2 95 19 142/76 95 Room Air Sp02 EP Interpretation: reviewed, normal General Appearance: well appearing, no apparent distress Head: normocephalic, atraumatic Eyes: bilateral eye PERRL, bilateral eye EOMI ENT: normal pharynx Neck: supple Respiratory: lungs clear, no retraction, no accessory muscle use Cardiovascular #1: regular rate, rhythm Gastrointestinal: non tender, soft Rectal: other - Small incisional wound still open left perirectal area approximately 2 cm lateral to the rectal region, appears to have granulation tissue and secondary healing, there is no fluctuance palpated there was some mild discharge appears to be clear, patient had some mild erythematous change to the skin on the right buttock area appears to be likely contact irritation does not appear to be cellulitic, rectal exam does not reveal any fistula or communication Genitourinary: no CVA tenderness Musculoskeletal: normal inspection Neurologic: alert, oriented x3 Skin: other - As above Lymphatic: no adenopathy Medical Decision Making Diagnostic Impression: Primary Impression: Wound infection Additional Impression: Dermatitis ER Course Patient has a fairly significant history I do recall seeing the patient in the exam previously Today's visit does not reveal any firmness or palpable masses Patient did have surgery at that time in April There is some discharge reported by the patient I feel that infectious pathology is possible and therefore patient is provided with initial antibiotics here Patient is afebrile does not appear septic or toxic this is something that the patient's specialist needs to reevaluate as well I feel that this can be done as an outpatient process however as opposed to inpatient Patient requires close follow-up if she has any difficulty with follow-up or if she has any change in symptoms she will return to the ER more emergently Last Vital Signs Date Time Temp Pulse Resp B/P (MAP) Pulse Ox O2 Delivery O2 Flow Rate FiO2 08/20/18 07:48 98.2 83 19 142/76 95 Room Air Status: improved Disposition: HOME, SELF-CARE Condition: Improved Scripts Ibuprofen* (MOTRIN*) 600 Mg Tablet 600 MG ORAL Q8H PRN for For Pain, #20 TAB 0 Refills Prov: Erika Arce DO 08/20/18 Clotrimazole* (LOTRIMIN*) 15 Gm Cream..g. 1 INCH TOPIC TWICE A DAY for 7 Days, GM Prov: Erika Arce DO 08/20/18 Trimethoprim/Sulfamethoxazole 160/800* (BACTRIM DS TABLET*) 1 Each Tablet 1 TAB ORAL Q12H, #20 TAB 0 Refills Prov: Erika Arce DO 08/20/18 Cephalexin* (KEFLEX*) 500 Mg Capsule 500 MG ORAL EVERY 6 HOURS for 10 Days, CAP Prov: Erika Arce DO 08/20/18 Referrals: [facility],REFERR[facility] (PCP) Additional Instructions: Patient is provided with the discharge instructions notified to follow up with primary doctor in the next 2-3 days otherwise return to the er with any worsening symptoms. Please note that this report is being documented using [employer] technology. This can lead to erroneous entry secondary to incorrect interpretation by the dictating instrument. Erika Arce DO Aug 20, 2018 08:12
[2018-08-20] MEDS ORDERED: Cephalexin 500mg cap ORAL ONE (08:15)
[2018-08-20] MEDS ORDERED: Bactrim-DS 1 tab ORAL ONE (08:15)
[2018-08-20] MEDS ORDERED: CEPHALEXIN500 MG ORAL (08:16)
[2018-08-20] MEDS ORDERED: IBUPROFEN600 MG ORAL (08:16)
[2018-08-20] MEDS ORDERED: BACTRIM DS TAB1 EAC1 ORAL (08:16)
[2018-08-20] MEDS ORDERED: CLOTRIMAZOLE15 GM TOPIC (08:16)
[2018-08-20 08:22] VITALS: BP 139/74
--- NOTE | 2018-08-20 08:23 | NUR ---
ED Nurse Note:pt. received d/c instructions with prescriptions and left ER with steady gait
== END 2018-08-20 08:24 | disposition home or self-care (01) ==
LOC: EMR 07:35
DX: S36.69 Other injury of rectum (principal); L08.9 Local infection of the skin and subcutaneous tissue, unspecified; X58.XXXD Exposure to other specified factors, subsequent encounter; L30.9 Dermatitis, unspecified; Z88.5 Allergy status to narcotic agent; Z88.6 Allergy status to analgesic agent
CPT/HCPCS: 99283

== ENCOUNTER 2019-01-15 12:43 | Emergency (ER) | payer MEDICAID ==
[~2019-01-15] VITALS: Ht 171.4 cm; Wt 68.0 kg
[~2019-01-15 12:43] MED LIST changes: +BACTRIM DS TAB1 EAC1 ORAL; +BENADRYL25 M3 PO; +CEPHALEXIN500 MG ORAL; +CLOTRIMAZOLE15 GM TOPIC; +ZYPREXA7.5 MG ORAL
--- NOTE | 2019-01-15 13:13 | Emergency Room Report ---
History of Present Illness General Chief Complaint: Skin Rash/Abscess Source: Medical Record Present Illness HPI 58 YO Female presents to the ED c/O 05/17 in severity pain to the rectum with blood and pus x 5 days. pt. has hx of austin-rectal abscess this past Apr 2018. Which required hospitalization and surgery. Pt. denies fevers or chills. She denies abdominal pain or tenderness. Constipation or diarrhea. Denies N/V. Pt. reports Feeling a small bump in the buttock area and has become larger in size with persistent drainage. Pt. states she is having to wear pantie liners. She is unable to find any relieving factors at this time. She has been applying topical antibiotic ointment for several days with no improvement. Pt. also reports that she recently was treated for cellulitis in that area as well. Allergies: Coded Allergies: CODEINE (Verified Allergy, Intermediate, Rash, 09/02/14) ASPIRIN (Verified Allergy, Mild, VOMITING, 09/02/14) MORPHINE (Verified Allergy, Unknown, 02/15/16) Patient History Past Medical History: see triage record Past Surgical History: none Pertinent Family History: none Last Menstrual Period: menopause Now: No Reviewed Nursing Documentation: PMH: Agreed; PSxH: Agreed Nursing Documentation-PMH Past Medical History: No History, Except For Hx Cardiac Problems: No Hx Hypertension: No Hx Pacemaker: No Hx Asthma: Yes Hx COPD: No Hx Diabetes: No Hx Cancer: No Hx Gastrointestinal Problems: No Hx Dialysis: No Hx Neurological Problems: No Hx Cerebrovascular Accident: No Hx Seizures: No Review of Systems All Other Systems: negative except mentioned in HPI Physical Exam Vital Signs Date Time Temp Pulse Resp B/P (MAP) Pulse Ox O2 Delivery O2 Flow Rate FiO2 01/15/19 12:47 98.1 109 18 140/94 (109) 99 Room Air Sp02 EP Interpretation: reviewed, normal General Appearance: alert, GCS 15, non-toxic, moderate distress Head: normocephalic, atraumatic Eyes: bilateral eye normal inspection, bilateral eye PERRL ENT: hearing grossly normal, normal voice Neck: full range of motion Respiratory: chest non-tender, lungs clear, normal breath sounds, no wheezing, speaking full sentences Cardiovascular #1: regular rate, rhythm Gastrointestinal: non tender, soft Rectal: other - 1cm in diameter macerated lesion with pus draining in the medial fold of the left buttock, not directly adjacent to the rectum. pt. has ttp to areas beyond the border of the purulent lesion. Genitourinary: normal inspection Musculoskeletal: back normal, gait/station normal, normal range of motion, non- tender Neurologic: alert, oriented x3, responsive, motor strength/tone normal, sensory intact, speech normal, grossly normal Psychiatric: judgement/insight normal Skin: normal color, warm/dry, well hydrated, other - pls. see rectal comment Medical Decision Making PA Attestation Dr. Oneill is my supervising Physician whom patient management has been discussed with. Diagnostic Impression: Primary Impression: Rectal fistula Additional Impression: UTI (urinary tract infection) Qualified Codes: N30.01 - Acute cystitis with hematuria ER Course 58 YO Female presents to the ED c/O 05/17 in severity pain to the rectum with blood and pus x 5 days. pt. has hx of austin-rectal abscess this past Apr 2018. Which required hospitalization and surgery. Pt. denies fevers or chills. She denies abdominal pain or tenderness. Constipation or diarrhea. Denies N/V. Pt. reports Feeling a small bump in the buttock area and has become larger in size with persistent drainage. Pt. states she is having to wear pantie liners. She is unable to find any relieving factors at this time. She has been applying topical antibiotic ointment for several days with no improvement. Pt. also reports that she recently was treated for cellulitis in that area as well. Ddx considered but are not limited to Fistula, austin-rectal abscess, cellulitis, STI/ viral rash, yeast infection just to name a few. Vital signs: are WNL, pt. is afebrile H&PE are most consistent with questionable austin-rectal fistula.---- CT Scanner is down at this time and unable to effectively rule this out. ORDERS: none required at this time, the diagnosis is clinical ED INTERVENTIONS: -Fentanyl 30mcg x 2 -lidocaine TP DISCHARGE: At this time pt. is stable for d/c to home. Will provide printed patient care instructions, and any necessary prescriptions. Care plan and follow up instructions have been discussed with the patient prior to discharge. Last Vital Signs Date Time Temp Pulse Resp B/P (MAP) Pulse Ox O2 Delivery O2 Flow Rate FiO2 01/15/19 12:47 98.1 109 18 140/94 (109) 99 Room Air Disposition: ADMITTED INPATIENT Condition: Serious Janice Rothman Jan 15, 2019 13:12
[2019-01-15] MEDS ORDERED: fentaNYL 100 mcg/2 mL IV ONE ×3 (13:30→18:45)
[2019-01-15 13:37] LABS: BASOPHILS % (AUTO) 2.6 % (0.0-2.0); EOSINOPHILS % (AUTO) 3.3 % (0.0-3.0); HEMATOCRIT 40.2 % (37.0-47.0); HEMOGLOBIN 13.3 G/DL (12.0-16.0); LYMPHOCYTES % (AUTO) 46.5 % (20.0-45.0); MEAN CORPUSCULAR VOLUME 96 FL (80-99); MONOCYTES % (AUTO) 9.3 % (1.0-10.0); NEUTROPHILS % (AUTO) 38.4 % (45.0-75.0); PLATELET COUNT 273 K/UL (150-450); RED BLOOD COUNT 4.19 M/UL (4.20-5.40); RED CELL DISTRIBUTION WIDTH 12.5 % (11.6-14.8); WHITE BLOOD COUNT 5.7 K/UL (4.8-10.8)
[2019-01-15 13:46] LABS: ANION GAP 7 mmol/L (5-15); BLOOD UREA NITROGEN 16 mg/dL (7-18); CALCIUM 9.6 MG/DL (8.5-10.1); CARBON DIOXIDE 28 MMOL/L (21-32); CHLORIDE 105 MMOL/L (98-107); CREATININE 0.9 MG/DL (0.55-1.30); POTASSIUM 4.2 MMOL/L (3.5-5.1); SODIUM 140 MMOL/L (136-145)
--- NOTE | 2019-01-15 13:46 | NUR ---
ED Nurse Note:blood and urine sent to labs and pain meds given to pt.
[2019-01-15 14:20] VITALS: BP 140/94
[2019-01-15] MEDS ORDERED: EMLA 5gm tube TOPIC ONE ×2 (15:30→15:45)
[2019-01-15 15:38] LABS: APPEARANCE,URINE SLIGHTLY CLOUDY; COLOR,URINE YELLOW; GLUCOSE, URINE (UA) NEGATIVE (NEGATIVE); KETONES,URINE NEGATIVE (NEGATIVE); PH,URINE 5 (4.5-8.0); PROTEIN,URINE NEGATIVE (NEGATIVE)
[2019-01-15 15:39] LABS: BILIRUBIN, URINE NEGATIVE (NEGATIVE); LEUKOCYTE ESTERASE ,URINE 3+ (NEGATIVE); NITRITE,URINE NEGATIVE (NEGATIVE); UROBILINOGEN,URINE NORMAL MG/DL (0.0-1.0)
[2019-01-15 16:19] LABS: CREATINE KINASE 462 U/L (26-308)
[2019-01-15 16:38] LABS: ALANINE AMINOTRANSFERASE 27 U/L (12-78); ALBUMIN 3.8 G/DL (3.4-5.0); ALKALINE PHOSPHATASE 62 U/L (46-116); ASPARTATE AMINO TRANSFERASE 27 U/L (15-37); BILIRUBIN,DIRECT < 0.1 MG/DL (0.0-0.3); BILIRUBIN,TOTAL 0.3 MG/DL (0.2-1.0)
--- NOTE | 2019-01-15 16:38 | Consultation ---
History of Present Illness General Date patient seen: Jan 15, 2019 Reason for Hospitalization: Skin Rash/Abscess Present Illness HPI 58F with hx of prior perianal abscess 1 year ago s/p I&D at [facility] last year presents with similar symptoms. States began a week ago and this morning worse with pus and bloody drainage. came to ED for evaluation. noted to have abnormal perianal lesions with tenderness and induration. surgery called to evaluate. patient seen, chart reviewed, patient examined. Allergies: Coded Allergies: CODEINE (Verified Allergy, Intermediate, Rash, 09/02/14) ASPIRIN (Verified Allergy, Mild, VOMITING, 09/02/14) MORPHINE (Verified Allergy, Unknown, 02/15/16) Medication History Scheduled Amitriptyline Hcl* (Amitriptyline Hcl*), 20 MG ORAL BEDTIME, (Reported) Amoxicillin/Potassium Clav 875-125* (Augmentin 875-125 Tablet*), 1 TAB ORAL TWICE A DAY Amoxicillin/Potassium Clav 875-125* (Augmentin 875-125 Tablet*), 1 TAB ORAL TWICE A DAY Azithromycin* (Zithromax*), 250 MG ORAL see sig Cephalexin* (Keflex*), 500 MG ORAL EVERY 6 HOURS Clonazepam* (Klonopin*), 1 MG PO BID, (Reported) Clotrimazole* (Lotrimin*), 1 INCH TOPIC TWICE A DAY Diazepam* (Valium*), 5 MG PO TID Mineral Oil/Hydrophil Petrolat (Aquaphor Healing Ointment), 50 GM TP NEEDED Naproxen Sodium (Aleve), 220 MG PO TID Olanzapine (Zyprexa), 7.5 MG ORAL DAILY, (Reported) Olanzapine* (Zyprexa*), 10 MG ORAL DAILY, (Reported) Phenylephrine HCl/Acetaminophn (Sudafed PE Pressure+Pain Cplt), 2 EACH PO Q4HR Pseudoephedrine Hcl* (Sudafed*), 60 MG PO Q6H Risperidone* (Risperdal*), 0.25 MG ORAL DAILY, (Reported) Trimethoprim/Sulfamethoxazole 160/800* (Bactrim Ds Tablet*), 1 TAB ORAL Q12H Valacyclovir Hcl* (Valtrex*), 1,000 MG ORAL Q8HR Scheduled PRN Albuterol Sulfate* (Albuterol Sulfate Mdi*), 2 PUFF INH Q4H PRN for For Cough Albuterol Sulfate* (Albuterol Sulfate Mdi*), 2 PUFF INH Q4H PRN for cough/ wheezing Hydrocodone Bit/Acetaminophen 5-325* ([place] 5-325*), 1 TAB ORAL Q6H PRN for For Pain Ibuprofen* (Motrin*), 600 MG ORAL Q8H PRN for For Pain Ibuprofen* (Motrin*), 600 MG ORAL Q8H PRN for For Pain Ibuprofen* (Motrin*), 600 MG ORAL Q8H PRN for For Pain Oxycodone/Acetaminophen 5-325* (Percocet 5-325 Mg Tablet*), 1 TAB ORAL Q6H PRN for For Pain Pseudoephedrine Hcl* (Nexafed*), 30 MG ORAL Q6H PRN for congestion Tramadol Hcl* (Ultram*), 50 MG ORAL Q6H PRN for For Pain Tramadol Hcl* (Ultram*), 50 MG ORAL Q6H PRN for For Pain Tramadol Hcl* (Ultram*), 50 MG ORAL Q6H PRN for For Pain Zolpidem Tartrate* (Ambien*), 10 MG ORAL BEDTIME PRN for Insomnia Miscellaneous Medications Diphenhydramine HCl (Benadryl), 25 MG PO, (Reported) Patient History History Provided By: Patient, Medical Record, PMD Healthcare decision maker Resuscitation status Advanced Directive on File Past Medical/Surgical History Past Medical/Surgical History: (1) Insomnia (2) Back pain (3) Back pain (4) Contusion (5) Headache (6) Headache (7) Headache (8) Sinusitis (9) Sinusitis (10) Cat scratch (11) Knee sprain (12) Knee sprain (13) Rotator cuff injury (14) Sinusitis, acute maxillary (15) Localized vesicular eruption (16) Injury of lower extremity (17) Encounter for medication refill (18) Knee strain (19) chest pain (20) tobacco abuse (21) Austin-rectal abscess (22) UTI (lower urinary tract infection) (23) anxiety reaction (24) Sinusitis (25) Bronchitis Review of Systems Review of Symptoms General ROS: no weight loss or fever Psychological ROS: no depression or mood changes, no memory loss Ophthalmic ROS: no visual changes or eye irritation ENT ROS: no nasal congestion, hearing loss, dizziness Allergy and Immunology ROS: no allergic symptoms or urticaria Hematological and Lymphatic ROS: no swollen glands, unusual bleeding or bruising Endocrine ROS: no polyuria, polydipsia, weight changes, temperature intolerance Respiratory ROS: no cough, shortness of breath, or wheezing Cardiovascular ROS: no chest pain or dyspnea on exertion Gastrointestinal ROS: denies abdominal pain, no bright red blood in stool. Musculoskeletal ROS: no myalgias or arthralgias Neurological ROS: no TIA or stroke symptoms Dermatological ROS: no new or changing skin lesions, rashes or pruritis Physical Exam Physical Exam General appearance: alert, cooperative, no distress, appears stated age Head: Normocephalic, without obvious abnormality, atraumatic Eyes: conjunctivae/corneas clear. PERRL, EOM's intact. Fundi benign Throat: Lips, mucosa, and tongue normal. Teeth and gums normal Neck: supple, symmetrical, trachea midline, no adenopathy, thyroid: not enlarged, symmetric, no tenderness/mass/nodules, no carotid bruit and no JVD Lungs: clear to auscultation bilaterally Heart: regular rate and rhythm, S1, S2 normal, no murmur, click, rub or gallop Abdomen: soft, non-tender. Bowel sounds normal. No masses, no organomegaly Extremities: extremities normal, atraumatic, no cyanosis or edema Pulses: 2+ and symmetric Skin: Skin color, texture, turgor normal. No rashes or lesions Neurologic: Grossly normal Rectal: there is a small 2mm abnormal growth in the left austin-rectal area 3cm from anal verge at the lateral 3 oclock aspect. next to it there is a 1mm opening without drainage. indurated, tender. Last 24 Hour Vital Signs Date Time Temp Pulse Resp B/P (MAP) Pulse Ox O2 Delivery O2 Flow Rate FiO2 01/15/19 14:22 98.1 01/15/19 14:20 98.1 87 18 140/94 99 Room Air 01/15/19 12:47 98.1 109 18 140/94 (109) 99 Room Air Laboratory Tests Test 01/15/19 13:15 01/15/19 13:18 01/15/19 15:40 White Blood Count 5.7 K/UL (4.8-10.8) Red Blood Count 4.19 M/UL (4.20-5.40) L Hemoglobin 13.3 G/DL (12.0-16.0) Hematocrit 40.2 % (37.0-47.0) Mean Corpuscular Volume 96 FL (80-99) Mean Corpuscular Hemoglobin 31.7 PG (27.0-31.0) H Mean Corpuscular Hemoglobin Concent 33.0 G/DL (32.0-36.0) Red Cell Distribution Width 12.5 % (11.6-14.8) Platelet Count 273 K/UL (150-450) Mean Platelet Volume 7.1 FL (6.5-10.1) Neutrophils (%) (Auto) 38.4 % (45.0-75.0) L Lymphocytes (%) (Auto) 46.5 % (20.0-45.0) H Monocytes (%) (Auto) 9.3 % (1.0-10.0) Eosinophils (%) (Auto) 3.3 % (0.0-3.0) H Basophils (%) (Auto) 2.6 % (0.0-2.0) H Urine Color Yellow Urine Appearance Slightly cloudy Urine pH 5 (4.5-8.0) Urine Specific [place] 1.015 (1.005-1.035) Urine Protein Negative (NEGATIVE) Urine Glucose (UA) Negative (NEGATIVE) Urine Ketones Negative (NEGATIVE) Urine Blood 2+ (NEGATIVE) H Urine Nitrite Negative (NEGATIVE) Urine Bilirubin Negative (NEGATIVE) Urine Urobilinogen Normal MG/DL (0.0-1.0) Urine Leukocyte Esterase 3+ (NEGATIVE) H Urine RBC 15-20 /HPF (0 - 2) H Urine WBC 10-15 /HPF (0 - 2) H Urine Squamous Epithelial Cells Moderate /LPF (NONE/OCC) H Urine Bacteria Moderate /HPF (NONE) H Sodium Level 140 MMOL/L (136-145) Potassium Level 4.2 MMOL/L (3.5-5.1) Chloride Level 105 MMOL/L (98-107) Carbon Dioxide Level 28 MMOL/L (21-32) Anion Gap 7 mmol/L (5-15) Blood Urea Nitrogen 16 mg/dL (7-18) Creatinine 0.9 MG/DL (0.55-1.30) Estimat Glomerular Filtration Rate > 60 mL/min (>60) Glucose Level 95 MG/DL (74-106) Calcium Level 9.6 MG/DL (8.5-10.1) Lactic Acid Level 0.30 mmol/L (0.4-2.0) L Total Bilirubin Pending Direct Bilirubin Pending Aspartate Amino Transf (AST/SGOT) Pending Alanine Aminotransferase (ALT/SGPT) Pending Alkaline Phosphatase Pending Total Creatine Kinase 462 U/L (26-308) H Troponin I 0.000 ng/mL (0.000-0.056) Total Protein Pending Albumin Pending Height (Feet): 5 Height (Inches): 7.50 Weight (Pounds): 150 Medications Current Medications Medications (Trade) Dose Ordered Sig/Bodulio Route PRN Reason Start Time Stop Time Status Last Admin Dose Admin Cefoxitin Sodium 1 gm/Dextrose 55 ml @ 110 mls/hr Q6HR ONCE IVPB 01/15/19 18:00 01/15/19 18:29 Assessment/Plan Problem List: (1) [place]-rectal abscess Assessment & Plan: 58F with history of perirectal abscess s/p I&D 1 year ago presented with similar symptoms. Rectal: there is a small 2mm abnormal growth in the left austin-rectal area 3cm from anal verge at the lateral 3 oclock aspect. next to it there is a 1mm opening without drainage. indurated, tender. 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
[2019-01-15] MEDS ORDERED: cefOXitin 1gm Inj ONE (16:49)
--- NOTE | 2019-01-15 17:36 | NUR ---
ED Nurse Note: AT THE BEDSIDE.
[2019-01-15] MEDS ORDERED: cefOXitin Sod 1 GM in D5W 55 ML IVPB ONE (18:00)
--- NOTE | 2019-01-15 18:01 | NUR ---
ED Nurse Note:called other hospital -given report to Jesse
[2019-01-15 18:08] VITALS: BP 135/90
--- NOTE | 2019-01-15 19:00 | NUR ---
ED Nurse Note:pt. was picked up by ambulance for transfer
[2019-01-15 19:17] VITALS: BP 135/90
== END 2019-01-15 19:00 | disposition short-term general hospital (02) ==
LOC: EMR 13:10
DX: K60.4 Rectal fistula (principal); N30.01 Acute cystitis with hematuria; Z88.6 Allergy status to analgesic agent
CPT/HCPCS: 36415; 80048; 80076; 81003; 82550; 83605; 84484; 85025; 87040; 87086; 96365; 96375; 96376; 99285; J0694; J3010

== ENCOUNTER 2019-03-06 20:52 | Emergency (ER) | payer MEDICAID ==
[~2019-03-06] VITALS: Ht 172.7 cm; Wt 90.7 kg
[2019-03-06 21:09] VITALS: BP 143/59
--- NOTE | 2019-03-06 21:11 | NUR ---
ED Nurse Note: Patient walked in to ER c/o anal fistula. Patient presented combative, crying, screaming. AAO x4, VSS at this time, skin is warm to touch.
[2019-03-06 21:30] VITALS: BP 143/59
[2019-03-06] MEDS ORDERED: Isovue-300 100ml vial INJ PRN (21:30)
[2019-03-06] MEDS ORDERED: Morphine Sulfate 4mg/ml Inj (IV USE ONLY) IVP ONE (21:30)
--- NOTE | 2019-03-06 21:30 | NUR ---
ER DISCHARGE NOTE: Patient is cleared to be discharged per ERMD, pt is aox4, on room air, with stable vital signs. pt was given dc and prescription instructions, pt was able to verbalize understanding, pt id band and iv site removed without complications. pt is able to ambulate with steady gait. pt took all belongings.
[2019-03-06 21:36] LABS: BASOPHILS % (AUTO) 1.7 % (0.0-2.0); EOSINOPHILS % (AUTO) 4.2 % (0.0-3.0); HEMATOCRIT 38.4 % (37.0-47.0); HEMOGLOBIN 13.2 G/DL (12.0-16.0); LYMPHOCYTES % (AUTO) 52.7 % (20.0-45.0); MEAN CORPUSCULAR VOLUME 94 FL (80-99); MONOCYTES % (AUTO) 10.6 % (1.0-10.0); NEUTROPHILS % (AUTO) 30.8 % (45.0-75.0); PLATELET COUNT 263 K/UL (150-450); RED CELL DISTRIBUTION WIDTH 12.1 % (11.6-14.8)
--- NOTE | 2019-03-06 21:37 | Emergency Room Report ---
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 Allergies: Coded Allergies: CODEINE (Verified Allergy, Intermediate, Rash, 09/02/14) ASPIRIN (Verified Allergy, Mild, VOMITING, 09/02/14) MORPHINE (Verified Allergy, Unknown, 02/15/16) Patient History Past Medical History: see triage record Last Menstrual Period: n/a Reviewed Nursing Documentation: PMH: Agreed; PSxH: Agreed Nursing Documentation-PMH Past Medical History: No History, Except For Hx Cardiac Problems: No Hx Hypertension: No Hx Pacemaker: No Hx Asthma: Yes Hx COPD: No Hx Diabetes: No Hx Cancer: No Hx Gastrointestinal Problems: No Hx Dialysis: No Hx Neurological Problems: No Hx Cerebrovascular Accident: No Hx Seizures: No Review of Systems All Other Systems: negative except mentioned in HPI Physical Exam Vital Signs Date Time Temp Pulse Resp B/P (MAP) Pulse Ox O2 Delivery O2 Flow Rate FiO2 03/06/19 21:01 98.2 95 18 143/59 (87) 98 Room Air Sp02 EP Interpretation: reviewed, normal General Appearance: well appearing, alert, mild distress Head: normocephalic, atraumatic Eyes: bilateral eye PERRL, bilateral eye EOMI ENT: uvula midline, moist mucus membranes Neck: supple, thyroid normal, supple/symm/no masses Respiratory: lungs clear, no respiratory distress, no retraction, no accessory muscle use Cardiovascular #1: normal peripheral pulses, regular rate, rhythm, no edema, no gallop, no murmur Gastrointestinal: non tender, soft, no guarding, no rebound 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 Patient with a tender mass in the lateral position on the left side, fluctuant, tender to palpation, the anal verge Musculoskeletal: normal inspection Neurologic: alert, oriented x3 Psychiatric: mood/affect normal Skin: no rash, warm/dry Medical Decision Making Diagnostic Impression: Primary Impression: Perirectal inflammation ER Course Patient presents with most likely a perirectal abscess, will obtain CT abdomen pelvis, patient is also requesting Dilaudid by name, concern for pain seeking behavior as well, patient has been having the symptoms for over 1 month Patient with no evidence of perirectal abscess, patient has perirectal pain, tenderness to palpation, fluctuance may be secondary to calcification seen on CT, spoke with tele-radiologist, no fluid collection, no fat stranding, patient with old scar tissue. Patient with possible pain seeking behavior, patient counseled to follow-up with a colorectal surgeon, disposition home with return precautions Cures report checked at 11:10 PM Laboratory Tests Test 03/06/19 21:25 White Blood Count 6.0 K/UL (4.8-10.8) Red Blood Count 4.10 M/UL (4.20-5.40) L Hemoglobin 13.2 G/DL (12.0-16.0) Hematocrit 38.4 % (37.0-47.0) Mean Corpuscular Volume 94 FL (80-99) Mean Corpuscular Hemoglobin 32.1 PG (27.0-31.0) H Mean Corpuscular Hemoglobin Concent 34.3 G/DL (32.0-36.0) Red Cell Distribution Width 12.1 % (11.6-14.8) Platelet Count 263 K/UL (150-450) Mean Platelet Volume 5.9 FL (6.5-10.1) L Neutrophils (%) (Auto) 30.8 % (45.0-75.0) L Lymphocytes (%) (Auto) 52.7 % (20.0-45.0) H Monocytes (%) (Auto) 10.6 % (1.0-10.0) H Eosinophils (%) (Auto) 4.2 % (0.0-3.0) H Basophils (%) (Auto) 1.7 % (0.0-2.0) Prothrombin Time 10.1 SEC (9.30-11.50) Prothrombin Time INR 0.9 (0.9-1.1) PTT 30 SEC (23-33) Sodium Level 142 MMOL/L (136-145) Potassium Level 3.4 MMOL/L (3.5-5.1) L Chloride Level 104 MMOL/L (98-107) Carbon Dioxide Level 28 MMOL/L (21-32) Anion Gap 10 mmol/L (5-15) Blood Urea Nitrogen 12 mg/dL (7-18) Creatinine 0.9 MG/DL (0.55-1.30) Estimate Glomerular Filtration Rate > 60 mL/min (>60) Glucose Level 95 MG/DL (74-106) Calcium Level 9.2 MG/DL (8.5-10.1) Total Bilirubin 0.3 MG/DL (0.2-1.0) Aspartate Amino Transferase (AST) 23 U/L (15-37) Alanine Aminotransferase (ALT) 21 U/L (12-78) Alkaline Phosphatase 52 U/L (46-116) Total Protein 7.4 G/DL (6.4-8.2) Albumin 3.8 G/DL (3.4-5.0) Globulin 3.6 g/dL Albumin/Globulin Ratio 1.1 (1.0-2.7) Lipase 93 U/L (73-393) EKG Diagnostic Results EKG Time: 22:35 EP Interpretation: NSR, rate 88, QTc 452, no acute ST elevations, normal axis Rate: normal Rhythm: NSR ST Segments: no acute changes Chest X-Ray Diagnostic Results Chest X-Ray Diagnostic Results : Chest X-Ray Ordered: Yes # of Views/Limited/Complete: 1 View Indication: Other - Preop Interpretation: no consolidation, no effusion, no pneumothorax Impression: No acute disease Electronically Signed by: Jarad Escobar MD CT/MRI/US Diagnostic Results CT/MRI/US Diagnostic Results : Impression Preliminary Findings Only See Final Report For Complete Findings CT ABDOMEN & PELVIS With Contrast: Compared to 04/10/18. Some distention of the stomach. Gastric outlet obstruction cannot be excluded. Some distention of the bladder. At least 2 small nonspecific low-density lesions in the liver which are too small to adequately characterize. Small low-density lesion in the left kidney which is too small to adequately characterize. The intra-abdominal organs are otherwise unremarkable. No evidence for bowel related inflammatory changes. No evidence for significant bowel loop dilation. The appendix is not clearly identified. No evidence for pericecal inflammatory changes. No free intraperitoneal fluid or free intraperitoneal gas. Mild atelectasis at the lung bases. Degenerative changes of the thoracolumbar spine. Small umbilical hernia containing fat only. Radiologist: Costa Bynum M.D. Study ready at 22:32 and initial results transmitted at 22:42 Last Vital Signs Date Time Temp Pulse Resp B/P (MAP) Pulse Ox O2 Delivery O2 Flow Rate FiO2 03/06/19 21:09 98.2 18 143/59 98 Room Air 03/06/19 21:01 95 Disposition: HOME, SELF-CARE Condition: Stable Scripts Hydrocodone Bit/Acetaminophen 5-325* (NORCO 5-325*) 1 Each Tablet 1 TAB ORAL Q6H PRN for For Pain, #10 TAB 0 Refills Prov: Jarad Escobar MD 03/06/19 Referrals: [facility],REFERRING (PCP) [facility] Patient Instructions: Perirectal Abscess Additional Instructions: The patient was provided with discharge instructions, notified to follow-up with a primary care doctor and or specialist in the next 24-48 hours, and to return to the ED if they have worsening of their symptoms. Please note that this report is being documented using [employer] technology. This can lead to erroneous entry secondary to incorrect interpretation by the dictating instrument. Please follow-up with a colorectal surgeon in 24 to 48 hours Jarad Escobar MD Mar 06, 2019 21:37
[2019-03-06 21:49] LABS: ANION GAP 10 mmol/L (5-15); BLOOD UREA NITROGEN 12 mg/dL (7-18); CALCIUM 9.2 MG/DL (8.5-10.1); CARBON DIOXIDE 28 MMOL/L (21-32); CHLORIDE 104 MMOL/L (98-107); CREATININE 0.9 MG/DL (0.55-1.30); POTASSIUM 3.4 MMOL/L (3.5-5.1); SODIUM 142 MMOL/L (136-145)
[2019-03-06 21:52] LABS: INR 0.9 (0.9-1.1)
[2019-03-06 21:54] LABS: ALANINE AMINOTRANSFERASE 21 U/L (12-78); ALBUMIN 3.8 G/DL (3.4-5.0); ALBUMIN/GLOBULIN RATIO 1.1 (1.0-2.7); ALKALINE PHOSPHATASE 52 U/L (46-116); ASPARTATE AMINO TRANSFERASE 23 U/L (15-37); BILIRUBIN,TOTAL 0.3 MG/DL (0.2-1.0)
--- NOTE | 2019-03-06 22:22 | NUR ---
ED Nurse Note: Patient keep asking for pain medication, stated that she needs more morphine.
[2019-03-06] MEDS ORDERED: LORazepam Inj 2mg/ml 1ml IV ONE (22:30)
--- NOTE | 2019-03-06 22:43 | Diagnostic Imaging Report ---
Indication: Abdominal pain Technique: Continuous helical transaxial imaging of the abdomen and pelvis was obtained from the lung bases to the pubic symphysis during intravenous contrast administration. Coronal 2-D reformats were also obtained. Study obtained in a Siemens sensation [address] Automatic Exposure Control was utilized. Total Dose length Product (DLP): 741.[address] Dose Index Volume (CTDIvol): 14.56 mGy Comparison: 04/10/2018 Findings: Left perianal abscess seen on the previous examination no longer seen. There is some dystrophic calcium again noted in this location as well as some soft tissue thickening but no abscess is identified. The bladder is mildly distended. Atrophic uterus noted. No evidence of acute appendicitis or bowel obstruction. No ascites identified. Mild aortoiliac calcifications are present. Hiatal hernia is noted. Calcification noted in the spleen. Gallbladder is unremarkable. The pancreas and adrenal glands are unremarkable. There is a small cyst in the inferior aspect of the right lobe of the liver. There is no hydronephrosis. IMPRESSION: No acute findings identified. No evidence of perianal abscess at this time. One was noted on the prior occasion. Degenerative changes of the spine Distended bladder Atherosclerotic vascular disease. Hiatal hernia. Calcified splenic granuloma. The CT scanner at [facility] is accredited by the [employer] and the scans are performed using dose optimization techniques as appropriate to a performed exam including Automatic Exposure control.
[2019-03-06] MEDS ORDERED: NORCO 5-325 TA1 EACH ORAL (23:09)
--- NOTE | 2019-03-07 10:54 | Diagnostic Imaging Report ---
Indication: Chest pain Comparison: 07/28/2017 A single view chest radiograph was obtained. Findings: Cardiomediastinal appearance is within normal limits for age. The lungs are clear. Pulmonary vascularity is appropriate. The diaphragmatic contour is smooth and costophrenic angles are sharp. No pleural effusions are identified. The bones are unremarkable. Impression: No acute findings
== END 2019-03-06 21:30 | disposition home or self-care (01) ==
LOC: EMR 21:05 → CANBEDREQ 23:58
DX: K62.89 Other specified diseases of anus and rectum (principal); Z88.6 Allergy status to analgesic agent; R10.9 Unspecified abdominal pain; K44.9 Diaphragmatic hernia without obstruction or gangrene; N32.89 Other specified disorders of bladder; R07.9 Chest pain, unspecified
CPT/HCPCS: 36415; 71045; 74177; 80053; 83690; 85025; 85610; 85730; 86850; 86900; 86901; 93005; 96361; 96374; 96375; 99284; J2270; J2405; Q9967

== ENCOUNTER → 2019-10-05 | Emergency (ER) | payer MEDICAID ==
[~2019-10-05] VITALS: Ht 170.2 cm; Wt 74.8 kg
[~2019-10-05] MED LIST changes: +Ketorolac 30mg Inj IM ONE; +ROBAXIN-500MG ORAL; +oxyCODONE HCL/Acetaminophen 5/325mg PO ONE
--- NOTE | 2019-10-05 08:15 | NUR ---
ED Nurse Note: pt. ambulated to ed c/o bilateral neck and shoulder pain for 4 days ,no fever or injury reported. placed on bed, skin intact. pt denies any injury nor trauma.
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
[2019-10-05 08:45] VITALS: BP 136/90
[2019-10-05 10:22] VITALS: BP 136/90
--- NOTE | 2019-10-05 10:22 | NUR ---
ER DISCHARGE NOTE: Patient is cleared to be discharged per ERMD, pt is aox4, on room air, with stable vital signs. pt was given dc and prescription instructions, pt was able to verbalize understanding, pt id band removed. pt is able to ambulate with steady gait. pt took all belongings.
--- NOTE | 2019-10-05 14:01 | Diagnostic Imaging Report ---
Indication: Pain for one week Technique: 3 views of the cervical spine Comparison: none Findings: No prevertebral soft tissue swelling. There is degenerative disc narrowing at C3-4, C4-5, C5-6. There is minimal degenerative disc narrowing at C6-7. No acute fractures. No dislocations. There is straightening of the normal cervical lordosis, otherwise normal bony alignment. Impression: Degenerative changes. No acute bony trauma
== END | disposition home or self-care (01) ==
LOC: EMR 08:49
DX: M54.2 Cervicalgia (principal); M19.90 Unspecified osteoarthritis, unspecified site; J45.909 Unspecified asthma, uncomplicated; Z88.6 Allergy status to analgesic agent; Z88.5 Allergy status to narcotic agent
CPT/HCPCS: 72040; 96372; J1885; Z7502; 99283

== ENCOUNTER 2019-12-02 07:26 | Emergency (ER) | payer MEDICAID ==
[~2019-12-02] VITALS: Ht 170.2 cm; Wt 77.1 kg
[~2019-12-02 07:26] MED LIST changes: -Ketorolac 30mg Inj IM ONE; -oxyCODONE HCL/Acetaminophen 5/325mg PO ONE
[2019-12-02 07:40] VITALS: BP 141/87
--- NOTE | 2019-12-02 07:40 | NUR ---
ED Nurse Note: pt ambulated to ED d/t pain on tailbone radiating on LT lower extremity started 5 days ago. Pt is AOx4 appears to be restless, difficulting walking on a longer distance; uses cane. VSS, on RA, afebrile on triage. Placed on bed.
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
[2019-12-02] MEDS ORDERED: HYDROcodone/Acetamin 10/325 tab ORAL ONE (08:00)
[2019-12-02] MEDS ORDERED: Ketorolac 60mg Inj IM ONE (08:00)
--- NOTE | 2019-12-02 08:27 | NUR ---
ED Nurse Note: Toradol 30mg IM & [place] 10-325 given but pt verbalizes, "It didn't help.." Pt still on bed, still appears to be restless and moaning in pain, notified ERMMilady.
[2019-12-02] MEDS ORDERED: HYDROmorphone 1mg/ml Carpuject IM ONE (08:45)
--- NOTE | 2019-12-02 09:08 | NUR ---
ED Nurse Note: Pt went to CT accompanied by tech
[2019-12-02] MEDS ORDERED: TRAMADOL HCL50 MG ORAL (09:40)
[2019-12-02] MEDS ORDERED: MEDROL DOSEPAK4 MG ORAL (09:40)
--- NOTE | 2019-12-02 09:40 | NUR ---
ED Nurse Note: Pt was on bed, asleep; nad noted.
--- NOTE | 2019-12-02 09:43 | Diagnostic Imaging Report ---
EXAM: CT Pelvis Without Intravenous Contrast CLINICAL HISTORY: PAIN TECHNIQUE: Axial computed tomography images of the pelvis without intravenous contrast. CTDI is 7 mGy and DLP is 255 mGy-cm. One or more of the following dose reduction techniques were used: automated exposure control, adjustment of the mA and/or kV according to patient size, use of iterative reconstruction technique. COMPARISON: No relevant prior studies available. FINDINGS: Bowel: Unremarkable. No obstruction. No mucosal thickening. Appendix: No findings to suggest acute appendicitis. Intraperitoneal space: Unremarkable. No free air. No significant fluid collection. Bladder: Unremarkable. No stones. Reproductive: Unremarkable as visualized. Bones/joints: No acute fracture. No dislocation. Soft tissues: There is subcutaneous edema in the medial aspects of both gluteal folds, right greater than left suggesting cellulitis. No fluid containing abscess is identified. Vasculature: Unremarkable. No lower abdominal aortic aneurysm. Lymph nodes: Unremarkable. No enlarged lymph nodes. IMPRESSION: There is subcutaneous edema in the medial aspects of both gluteal folds, right greater than left suggesting cellulitis. No fluid containing abscess is identified.
[2019-12-02 10:00] VITALS: BP 143/88
--- NOTE | 2019-12-02 10:00 | NUR ---
ER DISCHARGE NOTE: Pt is cleared to be discharged per ERMD, pt is aox4, on room air, with stable vital signs. pt was given dc and prescription instructions, pt was able to verbalize understanding, pt id band removed. pt is able to ambulate with steady gait. pt took all belongings.
== END 2019-12-02 10:00 | disposition home or self-care (01) ==
LOC: EMR 07:50
DX: R10.9 Unspecified abdominal pain (principal); M25.552 Pain in left hip; Z88.6 Allergy status to analgesic agent; R60.0 Localized edema
CPT/HCPCS: 72192; 96372; J1170; Z7502; 99284

== ENCOUNTER → 2019-12-08 | Emergency (ER) | payer MEDICAID ==
[~2019-12-08] VITALS: Ht 170.2 cm; Wt 77.1 kg
[~2019-12-08] MED LIST changes: +Ketorolac 30mg Inj IM ONE; +LIDODERM700 M1 TOPIC; +MEDROL DOSEPAK4 MG ORAL; +Morphine Sulfate 2mg/ml Inj(IV/IM USE ONLY) IM ONE; +NAPROXEN250 MG ORAL; +NORCO 5-325 TA1 EAC1 ORAL
[2019-12-08 09:42] VITALS: BP 139/82
--- NOTE | 2019-12-08 09:42 | NUR ---
ED Nurse Note: pt. was in ER 1 week ago with left pelvic and hip pain radiating down her left leg. Meds have been not working well and her symptoms got worst today.
--- NOTE | 2019-12-08 09:44 | NUR ---
ED Nurse Note: Dr. Blackburn is the bedside.
--- NOTE | 2019-12-08 10:00 | NUR ---
Note ryanantolin in ED - 12/08/19 at 1154 by [email or web address] ER DISCHARGE NOTE: Patient is cleared to be discharged per ERMD, pt is aox4, on room air, with stable vital signs. pt was given dc and prescription instructions, pt was able to verbalize understanding, pt id band removed without complications. pt is able to ambulate with steady gait. pt took all belongings.
--- NOTE | 2019-12-08 10:07 | Emergency Room Report ---
History of Present Illness General Chief Complaint: Pain Source: Patient Present Illness HPI 58-year-old female presents complaining of left hip pain. Started 1 week ago after she was pulled by her dogs. Denies falling. Was seen in ER last week. Had CT done of her hip. Was discharged with medications. States the medications are not helping. Pain is a 10 out of 10, radiating from the groin to the buttock. Sharp. Denies any bowel or bladder incontinence. Denies any leg or motor weakness. No other aggravating relieving factors. Denies any other associated symptoms Allergies: Coded Allergies: ASPIRIN (Verified Allergy, Mild, VOMITING, 09/02/14) MORPHINE (Verified Allergy, Unknown, 02/15/16) COVID-19 Screening Contact w/high risk pt: No Recent Travel to affected area: No Experienced COVID-19 symptoms?: No Patient History Past Medical History: asthma, psych hx Past Surgical History: none Pertinent Family History: none Social History: Denies: smoking, alcohol use, drug use Now: No Immunizations: UTD Reviewed Nursing Documentation: PMH: Agreed; PSxH: Agreed Nursing Documentation-PMH Past Medical History: No History, Except For Hx Cardiac Problems: No Hx Hypertension: No Hx Pacemaker: No Hx Asthma: Yes Hx COPD: No Hx Diabetes: No Hx Cancer: No Hx Gastrointestinal Problems: No Hx Dialysis: No Hx Neurological Problems: No Hx Cerebrovascular Accident: No Hx Seizures: No Review of Systems All Other Systems: negative except mentioned in HPI Physical Exam Vital Signs Date Time Temp Pulse Resp B/P (MAP) Pulse Ox O2 Delivery O2 Flow Rate FiO2 20 09:30 98.1 100 20 139/82 (101) 98 Room Air Sp02 EP Interpretation: reviewed, normal General Appearance: alert, GCS 15, non-toxic, mild distress Head: normocephalic Eyes: bilateral eye normal inspection, bilateral eye PERRL ENT: normal ENT inspection Neck: normal inspection Respiratory: normal inspection Cardiovascular #1: normal inspection Gastrointestinal: normal inspection Rectal: black stool Genitourinary: no CVA tenderness Musculoskeletal: back normal, decreased range of motion, gait/station normal, other - pain to L inguinal area. pain with external rotation L hip Neurologic: alert, motor strength/tone normal, oriented x3, sensory intact, responsive, speech normal Psychiatric: judgement/insight normal, memory normal, mood/affect normal, no suicidal/homicidal ideation, anxious Skin: no rash Lymphatic: normal inspection Medical Decision Making Diagnostic Impression: Primary Impression: Strain of hip flexor Qualified Codes: S76.012D - Strain of muscle, fascia and tendon of left hip, subsequent encounter ER Course Hospital Course 58-year-old female presents to ED complaining of left hip pain x 1 week Differential diagnoses include: Fracture, dislocation, sprain, contusion, bursitis Clinical course Patient placed on stretcher. After initial history, physical exam reveals an middle-aged female in mild distress. There is some pain to the left hip which radiates to the buttock. Pain with external rotation. No bruising or crepitus. No deformity. I reviewed EMR. Patient was seen here last week for same presentation. Had CT of pelvis. Showed some mild inflammation on the left side muscles. Was prescribed tramadol and methocarbamol which she states are not helping. I do not believe patient requires further work-up. Based on presentation likely hip flexor strain. Patient given Toradol and morphine IM here with pain improved. Also given Lidoderm patch. Walking in ED after pain meds. Safe for discharge for close outpatient follow- up. I will provide Ortho referrals Diagnosis - strain of hip flexor stable and discharged to home with prescription for Naprosyn, Mereta, Lidoderm. Followup with PMD/ortho. Return to ED if symptoms recur or worsen Last Vital Signs Date Time Temp Pulse Resp B/P (MAP) Pulse Ox O2 Delivery O2 Flow Rate FiO2 12/08/19 09:30 98.1 100 20 139/82 (101) 98 Room Air Status: improved Disposition: HOME, SELF-CARE Condition: Stable Scripts Lidocaine Patch* (Lidoderm Patch*) 1 Each Adh..patch 1 PATCH TOPIC DAILY, #7 PATCH 0 Refills Patch(es) may remain in place for up to 12 hours in any 24-hour period. Prov: Joshua Felton MD 12/08/19 Hydrocodone Bit/Acetaminophen 5-325* (NORCO 5-325 TABLET*) 1 Each Tablet 1 TAB ORAL Q6H PRN for FOR PAIN, #10 TAB 0 Refills Prov: Jsohua Felton MD 12/08/19 Naproxen* (NAPROSYN*) 250 Mg Tablet 250 MG ORAL TID PRN for For Pain, #20 TAB 0 Refills Prov: Joshua Felton MD 12/08/19 Referrals: NON PHYSICIAN (PCP) Joshua Felton MD December 08, 2019 10:07
[2019-12-08 10:23] VITALS: BP 119/80
--- NOTE | 2019-12-08 10:26 | NUR ---
ED Nurse Note: Per pt, pain scale is 0 after received pain shots. VVS.
[2019-12-08 10:39] VITALS: BP 147/85
--- NOTE | 2019-12-08 10:39 | NUR ---
ED Nurse Note: Pt void and VVS.
--- NOTE | 2019-12-08 11:00 | NUR ---
ER DISCHARGE NOTE: Patient is cleared to be discharged per ERMD, pt is aox4, on room air, with stable vital signs. pt was given dc and prescription instructions, pt was able to verbalize understanding, pt id band removed without complications. pt is able to ambulate with steady gait. pt took all belongings.
== END | disposition home or self-care (01) ==
LOC: EMR 09:52
DX: S76.012D Strain of muscle, fascia and tendon of left hip, subsequent encounter (principal); Z88.6 Allergy status to analgesic agent; X58.XXXA Exposure to other specified factors, initial encounter; Y92.9 Unspecified place or not applicable
CPT/HCPCS: 96372; J1885; J2270; Z7502; 99283

== ENCOUNTER 2020-07-24 08:01 | Emergency (ER) | payer MEDICAID ==
[~2020-07-24] VITALS: Ht 170.2 cm; Wt 77.1 kg
[~2020-07-24 08:01] MED LIST changes: +HYDROCODON-ACE1 EA18 PO; +IBUPROFEN600 M1 ORAL; -Ketorolac 30mg Inj IM ONE; -Morphine Sulfate 2mg/ml Inj(IV/IM USE ONLY) IM ONE; +NORCO 7.5-3251 EACH ORAL; +ROBAXIN-750750 MG PO
--- NOTE | 2020-07-24 08:11 | NUR ---
ED Nurse Note: patient walked in from home to ed c/o sob, asthma exacerbation. pt is a/ox4, ambulatory, presents with wheezing all throughout, hr 101, other vss, afebrile. started iv on rfa 22 gauge, blood collected and sent to lab, swabbed for covid and sent to lab.
--- NOTE | 2020-07-24 08:25 | Emergency Room Report ---
History of Present Illness General Chief Complaint: Asthma Source: Patient Present Illness HPI Patient presents with several days of worsening dyspnea with wheezing. In addition she has sinus pain and headache and fullness. She denies fevers or chills. She denies productive cough. She states each year around this time she gets into trouble with her allergies with her asthma and also sinusitis. She has been taking her albuterol without help. Also she has been taking Benadryl. She denies chest pain. There is no nausea, vomiting or diarrhea. There is no dysuria. She denies any edema or leg swelling. She also complains of left ear pain. She rates the pain in her ear 10/10. It is aching and pressure. It also is causing a headache. The headache is pounding. It is not the worst headache in her life. Patient denies exposure to Covid positive contacts. No sore throat, chest pain, palpitations, dysuria, abdominal pain, joint pain, rashes, depression, anxiety, visual changes, dizziness. Allergies: Coded Allergies: ASPIRIN (Verified Allergy, Mild, VOMITING, 09/02/14) MORPHINE (Verified Allergy, Unknown, 02/15/16) COVID-19 Screening Contact w/high risk pt: No Recent Travel to affected area: No Experienced COVID-19 symptoms?: No COVID-19 Testing performed ARCHITECTURE INSTRUCTOR: No Patient History Past Medical History: see triage record Social History: Denies: smoking Social History Narrative Brought by Now: No Reviewed Nursing Documentation: PMH: Agreed; PSxH: Agreed Nursing Documentation-PMH Hx Cardiac Problems: No Hx Hypertension: No Hx Pacemaker: No Hx Asthma: Yes Hx COPD: No Hx Diabetes: No Hx Cancer: No Hx Gastrointestinal Problems: No Hx Dialysis: No Hx Neurological Problems: No Hx Cerebrovascular Accident: No Hx Seizures: No Review of Systems All Other Systems: negative except mentioned in HPI Physical Exam Vital Signs Date Time Temp Pulse Resp B/P (MAP) Pulse Ox O2 Delivery O2 Flow Rate FiO2 07/24/20 08:09 98.6 98 20 95 Room Air Sp02 EP Interpretation: reviewed, abnormal - Interpreted as slightly low by me General Appearance: GCS 15, non-toxic, mild distress Head: normocephalic Eyes: bilateral eye normal inspection, bilateral eye PERRL, bilateral eye EOMI ENT: normal pharynx, moist mucus membranes Neck: supple Respiratory: no retraction, no accessory muscle use, wheezing, expiration Cardiovascular #1: regular rate, rhythm Cardiovascular #2: 2+ radial (R) Gastrointestinal: normal inspection, normal bowel sounds, non tender, no mass, non-distended Musculoskeletal: back normal, normal range of motion, no calf tenderness, gait/station normal Neurologic: alert, oriented x3, grossly normal Psychiatric: anxious Skin: no rash, warm/dry Medical Decision Making Diagnostic Impression: Primary Impression: Asthma exacerbation Qualified Codes: J45.41 - Moderate persistent asthma with (acute) exacerbation Additional Impressions: Otitis media Qualified Codes: H65.02 - Acute serous otitis media, left ear Sinusitis Qualified Codes: J01.91 - Acute recurrent sinusitis, unspecified Eosinophilia Qualified Codes: D72.19 - Other eosinophilia ER Course Patient presents with asthma exacerbation sinusitis and left ear pain. Differential includes asthmatic bronchitis, allergic sinusitis, bacterial sinusitis, COVID-19 amongst others. Patient evaluated with EKG, chest x-ray and labs including COVID-19. Patient treated with 5 puffs of her inhaler, IM epinephrine and Solu-Medrol. Also pain will be treated with Zofran and fentanyl. EKG sinus rhythm no injury. Chest x-ray no infiltrates. White count normal however there is eosinophilia. Patient improved but still has some increased expiratory phase. Patient tested negative for Covid. Still complaining about pain in the ear and also the sinuses. Breathing treatment ordered and more analgesia and antibiotics. Patient improved with breathing treatments. Pain also improved. Discussed treatment plan with patient. Discussed the need for outpatient follow-up. Patient is stable for outpatient observation and treatment. Laboratory Tests Test 07/24/20 08:25 07/24/20 09:09 White Blood Count 4.5 K/UL (4.8-10.8) L Red Blood Count 4.07 M/UL (4.20-5.40) L Hemoglobin 13.2 G/DL (12.0-16.0) Hematocrit 38.8 % (37.0-47.0) Mean Corpuscular Volume 96 FL (80-99) Mean Corpuscular Hemoglobin 32.6 PG (27.0-31.0) H Mean Corpuscular Hemoglobin Concent 34.1 G/DL (32.0-36.0) Red Cell Distribution Width 13.9 % (11.6-14.8) Platelet Count 252 K/UL (150-450) Mean Platelet Volume 7.3 FL (6.5-10.1) Neutrophils (%) (Auto) 35.1 % (45.0-75.0) L Lymphocytes (%) (Auto) 46.0 % (20.0-45.0) H Monocytes (%) (Auto) 12.2 % (1.0-10.0) H Eosinophils (%) (Auto) 3.9 % (0.0-3.0) H Basophils (%) (Auto) 2.8 % (0.0-2.0) H Prothrombin Time 10.3 SEC (9.30-11.50) Prothrombin Time INR 0.9 (0.9-1.1) Activated Partial Thromboplast Time 30 SEC (23-33) Sodium Level 137 MMOL/L (136-145) Potassium Level 4.4 MMOL/L (3.5-5.1) Chloride Level 102 MMOL/L (98-107) Carbon Dioxide Level 28 MMOL/L (21-32) Anion Gap 7 mmol/L (5-15) Blood Urea Nitrogen 20 mg/dL (7-18) H Creatinine 1.0 MG/DL (0.55-1.30) Estimated Glomerular Filtration Rate > 60 mL/min (>60) Glucose Level 101 MG/DL (74-106) Calcium Level 9.0 MG/DL (8.5-10.1) Total Bilirubin 0.3 MG/DL (0.2-1.0) Aspartate Amino Transferase (AST) 21 U/L (15-37) Alanine Aminotransferase (ALT) 25 U/L (12-78) Alkaline Phosphatase 63 U/L (46-116) Total Creatine Kinase 405 U/L (26-308) H Troponin I 0.000 ng/mL (0.000-0.056) Pro-B-Type Natriuretic Peptide 36 pg/mL (0-125) Total Protein 7.6 G/DL (6.4-8.2) Albumin 3.9 G/DL (3.4-5.0) Globulin 3.7 g/dL Albumin/Globulin Ratio 1.1 (1.0-2.7) Urine Color Pale yellow Urine Appearance Clear Urine pH 5 (4.5-8.0) Urine Specific Mathews 1.015 (1.005-1.035) Urine Protein Negative (NEGATIVE) Urine Glucose (UA) Negative (NEGATIVE) Urine Ketones Negative (NEGATIVE) Urine Blood 1+ (NEGATIVE) H Urine Nitrite Negative (NEGATIVE) Urine Bilirubin Negative (NEGATIVE) Urine Urobilinogen Normal MG/DL (0.0-1.0) Urine Leukocyte Esterase Negative (NEGATIVE) Urine RBC 5-10 /HPF (0 - 2) H Urine WBC 0-2 /HPF (0 - 2) Urine Squamous Epithelial Cells Few /LPF (NONE/OCC) Urine Bacteria Few /HPF (NONE) Microbiology Date/Time Source Procedure Growth Status 07/24/20 08:25 Nasopharynx SARS-CoV-2 RdRp Gene Assay - Final Complete EKG Diagnostic Results Rate: normal Rhythm: NSR ST Segments: no acute changes Rhythm Strip Diag. Results EP Interpretation: yes Rhythm: NSR, no PVC's, no ectopy Chest X-Ray Diagnostic Results Chest X-Ray Diagnostic Results : Chest X-Ray Ordered: Yes # of Views/Limited/Complete: 1 View Indication: Shortness of Breath EP Interpretation: Yes Interpretation: no consolidation, no effusion, no pneumothorax, other - Borderline cardiomegaly Impression: Other Electronically Signed by: Electronically signed by Clement Cordova MD Last Vital Signs Date Time Temp Pulse Resp B/P (MAP) Pulse Ox O2 Delivery O2 Flow Rate FiO2 07/24/20 12:00 98.0 84 18 120/80 98 Room Air 07/24/20 10:03 21 Status: improved Disposition: HOME, SELF-CARE Condition: Improved Scripts Hydrocodone Bit/Acetaminophen 5-325* (NORCO 5-325 TABLET*) 1 Each Tablet 1 TAB ORAL Q6H PRN for FOR PAIN, #6 TAB 0 Refills Prov: Clement Cordova MD 07/24/20 Prednisone* (PREDNISONE*) 20 Mg Tablet 40 MG ORAL DAILY, #10 TAB Prov: Clement Cordova MD 07/24/20 Albuterol Sulfate* (Albuterol Sulfate Hfa*) 8.5 Gm Hfa.aer.ad 2 PUFF INH Q6H, #1 INH Prov: Clement Cordova MD 07/24/20 Amoxicillin* (AMOXIL*) 500 Mg Capsule 500 MG ORAL THREE TIMES A DAY, #21 CAP Prov: Clement Cordova MD 07/24/20 Clement Cordova MD Jul 24, 2020 08:25
[2020-07-24] MEDS ORDERED: EPINEPHrine 1mg/1ml Amp IM ONE (08:30)
[2020-07-24] MEDS ORDERED: Solu-MEDROL 125mg Inj IVP ONE (08:30)
[2020-07-24] MEDS ORDERED: fentaNYL 100 mcg/2 mL IV ONE (08:30)
--- NOTE | 2020-07-24 08:51 | NUR ---
ED Nurse Note: xray at bedside
[2020-07-24 08:52] VITALS: BP 127/84
[2020-07-24 09:19] LABS: BASOPHILS % (AUTO) 2.8 % (0.0-2.0); EOSINOPHILS % (AUTO) 3.9 % (0.0-3.0); HEMATOCRIT 38.8 % (37.0-47.0); HEMOGLOBIN 13.2 G/DL (12.0-16.0); MEAN CORPUSCULAR VOLUME 96 FL (80-99); MONOCYTES % (AUTO) 12.2 % (1.0-10.0); NEUTROPHILS % (AUTO) 35.1 % (45.0-75.0); PLATELET COUNT 252 K/UL (150-450); RED BLOOD COUNT 4.07 M/UL (4.20-5.40); RED CELL DISTRIBUTION WIDTH 13.9 % (11.6-14.8); WHITE BLOOD COUNT 4.5 K/UL (4.8-10.8)
[2020-07-24 09:30] LABS: INR 0.9 (0.9-1.1)
[2020-07-24 09:32] LABS: APPEARANCE,URINE CLEAR; BILIRUBIN, URINE NEGATIVE (NEGATIVE); COLOR,URINE PALE YELLOW; GLUCOSE, URINE (UA) NEGATIVE (NEGATIVE); KETONES,URINE NEGATIVE (NEGATIVE); LEUKOCYTE ESTERASE ,URINE NEGATIVE (NEGATIVE); NITRITE,URINE NEGATIVE (NEGATIVE); PH,URINE 5 (4.5-8.0); PROTEIN,URINE NEGATIVE (NEGATIVE); UROBILINOGEN,URINE NORMAL MG/DL (0.0-1.0)
[2020-07-24 09:34] LABS: ANION GAP 7 mmol/L (5-15); BLOOD UREA NITROGEN 20 mg/dL (7-18); CARBON DIOXIDE 28 MMOL/L (21-32); CHLORIDE 102 MMOL/L (98-107); POTASSIUM 4.4 MMOL/L (3.5-5.1); SODIUM 137 MMOL/L (136-145)
[2020-07-24 09:40] LABS: ALANINE AMINOTRANSFERASE 25 U/L (12-78); ALBUMIN 3.9 G/DL (3.4-5.0); ALBUMIN/GLOBULIN RATIO 1.1 (1.0-2.7); ALKALINE PHOSPHATASE 63 U/L (46-116); ASPARTATE AMINO TRANSFERASE 21 U/L (15-37); BILIRUBIN,TOTAL 0.3 MG/DL (0.2-1.0); CREATINE KINASE 405 U/L (26-308)
[2020-07-24] MEDS ORDERED: Albuterol/Ipratropium 3ml neb HHN ONE (09:45)
[2020-07-24] MEDS ORDERED: oxyCODONE HCL/Acetaminophen 5/325mg ORAL ONE (09:45)
--- NOTE | 2020-07-24 10:33 | Diagnostic Imaging Report ---
Indication: Dyspnea Technique: One view of the chest Comparison: 03/06/2019 Findings:. Less optimal inspiration currently. Lungs and pleural spaces remain clear. The heart size is normal. Impression: No acute process
--- NOTE | 2020-07-24 11:46 | NUR ---
ED Nurse Note: patient self removed iv.
[2020-07-24 12:00] VITALS: BP 120/80
[2020-07-24] MEDS ORDERED: ALBUTEROL SULF8.5 G1 INH (12:03)
[2020-07-24] MEDS ORDERED: AMOXICILLIN500 MG ORAL (12:03)
[2020-07-24] MEDS ORDERED: TRAMADOL HCL50 MG ORAL (12:03)
[2020-07-24] MEDS ORDERED: PREDNISONE20 MG ORAL (12:03)
[2020-07-24] MEDS ORDERED: NORCO 5-325 TA1 EAC1 ORAL (12:09)
--- NOTE | 2020-07-24 12:17 | NUR ---
DISCHARGED HOME WITH INSTRUCTION AND RX FOLLOW UP WITH PMD
== END 2020-07-24 12:18 | disposition home or self-care (01) ==
LOC: EMR 08:31
DX: J45.41 Moderate persistent asthma with (acute) exacerbation (principal); H65.02 Acute serous otitis media, left ear; J01.91 Acute recurrent sinusitis, unspecified; D72.19 Other eosinophilia; Z79.899 Other long term (current) drug therapy; Z88.5 Allergy status to narcotic agent; Z88.6 Allergy status to analgesic agent
CPT/HCPCS: 36415; 71045; 80053; 81003; 82550; 83880; 84484; 85025; 85610; 85730; 93005; 94640; 96361; 96372; 96374; 96375; J0171; J2405; J2930; J3010; J7030; U0002; Z7502; 99284; J7620

== ENCOUNTER 2020-08-22 09:30 | Emergency (ER) | payer MEDICAID ==
[~2020-08-22] VITALS: Ht 170.2 cm; Wt 79.4 kg
[~2020-08-22 09:30] MED LIST changes: +ALBUTEROL SULF8.5 G1 INH; +PREDNISONE20 MG ORAL
--- NOTE | 2020-08-22 10:24 | NUR ---
ED Nurse Note:Pt walked in from home using cane c/o 05/17 right hip pain. Pt reports mechanical fall on Tuesday after tripping over her cat. Pt taking naproxen at home, but it is now causing her stomach pain. Respirations even and unlabored on room air. Vitals stable as documented. A+Ox4, speaking in complete sentences.
[2020-08-22] MEDS ORDERED: Morphine Sulfate 2mg/ml Inj(IV/IM USE ONLY) IM ONE (10:45)
[2020-08-22] MEDS ORDERED: DiphenhydrAMINE 50mg/ml Inj IM ONE (10:45)
--- NOTE | 2020-08-22 11:11 | NUR ---
ED Nurse Note: pt in radiology
[2020-08-22] MEDS ORDERED: PERCOCET 5-3251 EACH ORAL (11:42)
[2020-08-22] MEDS ORDERED: FAMOTIDINE20 MG ORAL (11:42)
--- NOTE | 2020-08-22 11:47 | Emergency Room Report ---
History of Present Illness General Chief Complaint: Lower Extremity Injury Source: Patient, Medical Record Present Illness HPI Patient presents emergency department today complaining of lower back pain. Patient states that she tripped over her cat and landed on a baby gate on her [employer] side of her flank. This occurred about 2 to 3 days ago. Patient has had significant pain in her flank since then. The pain is nonradiating. She does not have any numbness or disability. She is able to ambulate with some help. She denies any perineal anesthesia. Denies any neurologic complaints. The pain is worse with palpation and movement of her body. She denies any nausea or vomiting. She states that she has been taking a lot of Naprosyn for pain and that is starting to affect her stomach causing her some upset stomach. She denies any hemoptysis or hematemesis. Denies any melena. No other complaints are noted. Symptoms noted to be moderate. Patient states that Naprosyn has not been working. Patient states that morphine makes her itch but otherwise she has no other allergies. No other modifying factors. No other associated signs and symptoms. No other complaints were noted. Allergies: Coded Allergies: ASPIRIN (Verified Allergy, Mild, VOMITING, 09/02/14) MORPHINE (Verified Allergy, Unknown, 02/15/16) COVID-19 Screening Contact w/high risk pt: No Recent Travel to affected area: No Experienced COVID-19 symptoms?: No COVID-19 Testing performed DIRECTOR OF PUBLICATIONS: Yes COVID-19 Screening: Negative COVID-19 COVID-19 Testing Source: 1 month ago @ [facility] [place] Patient History Past Medical History: none Past Surgical History: none Pertinent Family History: none Social History: Denies: smoking, alcohol use, drug use Reviewed Nursing Documentation: PMH: Agreed; PSxH: Agreed Nursing Documentation-PMH Past Medical History: No History, Except For Hx Cardiac Problems: No Hx Hypertension: No Hx Pacemaker: No Hx Asthma: Yes Hx COPD: No Hx Diabetes: No Hx Cancer: No Hx Gastrointestinal Problems: No Hx Dialysis: No Hx Neurological Problems: No Hx Cerebrovascular Accident: No Hx Seizures: No Review of Systems All Other Systems: negative except mentioned in HPI Physical Exam Vital Signs Date Time Temp Pulse Resp B/P (MAP) Pulse Ox O2 Delivery O2 Flow Rate FiO2 08/22/20 10:17 98.1 93 22 131/79 (96) 96 Room Air Sp02 EP Interpretation: reviewed, normal General Appearance: normal inspection, well appearing, no apparent distress, alert Head: atraumatic Eyes: bilateral eye normal inspection ENT: normal ENT inspection, hearing grossly normal, normal voice Neck: normal inspection, full range of motion, supple, no bony tend Respiratory: normal inspection, lungs clear, normal breath sounds, no respiratory distress, no retraction, no wheezing Cardiovascular #1: regular rate, rhythm, no edema Gastrointestinal: normal inspection, normal bowel sounds, non tender, soft, no guarding, no hernia Genitourinary: no CVA tenderness Musculoskeletal: normal inspection, back normal, normal range of motion, other - Right flank tenderness. No evidence of contusion. Neurologic: alert, responsive, speech normal, normal inspection Psychiatric: normal inspection, judgement/insight normal, mood/affect normal Skin: no rash Medical Decision Making Diagnostic Impression: Primary Impression: Back injury ER Course Patient presents emergency department today with fall and right-sided flank pain. Differential considerations include fractures dislocation versus strain. Given patient presentation I feel the x-rays are indicated. Patient was given 1 dose of morphine IM as well as Benadryl for pain and felt much better. X-rays were noted to be negative. Given patient had negative work-up. Pain is relieved with injections of narcotics I feel the patient be discharged with prescription for pain medications narcotics and muscle relaxants. Recommend close outpatient follow-up. Will provide Pepcid because of patient's upset stomach for taking Naprosyn. No evidence of any GI complaints or issues at this time. Patient is advised to follow up with primary doctor in 2-3 days and return the emergency room for any worsening symptoms and as needed. Other X-Ray Diagnostic Results Other X-Ray Diagnostic Results #1: X-Ray ordered: Lumbar spine # of Views/Limited Vs Complete: 3 View Indication: Pain EP Interpretation: Yes Interpretation: no dislocation, no soft tissue swelling, no fractures, nonspecific bowel gas Impression: No acute disease Electronically Signed by: Electronically signed by Lucien Oneill MD Other X-Ray Diagnostic Results #2: X-Ray ordered: Right hip and pelvis # of Views/Limited Vs Complete: 3 View Indication: Pain EP Interpretation: Yes Interpretation: no dislocation, no soft tissue swelling, no fractures Impression: No acute disease Electronically Signed by: Electronically signed by Lucien Oneill MD Last Vital Signs Date Time Temp Pulse Resp B/P (MAP) Pulse Ox O2 Delivery O2 Flow Rate FiO2 08/22/20 10:17 98.1 93 22 131/79 (96) 96 Room Air Status: improved Disposition: HOME, SELF-CARE Condition: Stable Scripts Famotidine* (Pepcid 20mg tablet*) 20 Mg Tablet 20 MG ORAL TWICE A DAY for Gerd, #30 TAB 0 Refills Prov: Lucien Oneill MD 08/22/20 Oxycodone/Acetaminophen 5-325* (PERCOCET 5-325 MG TABLET*) 1 Each Tablet 1 TAB ORAL Q4H PRN for For Pain, #10 TAB 0 Refills Prov: Lucien Oneill MD 08/22/20 Patient Instructions: Back Pain, Adult, [id number] Lucien Oneill MD Aug 22, 2020 11:47
[2020-08-22 12:13] VITALS: BP 120/79
--- NOTE | 2020-08-22 13:16 | NUR ---
discharge instruction and rx follow up with pmd
--- NOTE | 2020-08-22 13:59 | Diagnostic Imaging Report ---
Indication: Right hip pain Technique: 2 views of the right hip, one view of the pelvis Comparison: none Findings: No acute fracture. No dislocation. The joint spaces are preserved Impression: Negative This agrees with the preliminary interpretation provided by the emergency room physician
--- NOTE | 2020-08-22 14:04 | Diagnostic Imaging Report ---
Indication: Pain, trauma, status post fall Technique: 3 views of the lumbar spine Comparison: None Findings: Bony alignment is normal. There is degenerative disc narrowing at L2-3, L5-S1, and to lesser extent at L3-4. Vertebral body heights are preserved. No acute fracture. No dislocation. Pedicles are intact. Sacral arches are preserved. Sacroiliac joint spaces are preserved Impression: Degenerative changes. No acute bony trauma
== END 2020-08-22 13:17 | disposition home or self-care (01) ==
LOC: EMR 11:08
DX: S39.92XA Unspecified injury of lower back, initial encounter (principal); J45.909 Unspecified asthma, uncomplicated; W01.198A Fall on same level from slipping, tripping and stumbling with subsequent striking against other object, initial encounter; Y93.9 Activity, unspecified; Y92.019 Unspecified place in single-family (private) house as the place of occurrence of the external cause; Z79.899 Other long term (current) drug therapy; Z88.6 Allergy status to analgesic agent; Z88.5 Allergy status to narcotic agent
CPT/HCPCS: 72020; 73501; 96372; J1200; J2270; Z7502; 99284

== ENCOUNTER 2020-09-29 07:33 | Emergency (ER) | payer MEDICAID ==
[~2020-09-29] VITALS: Ht 170.2 cm; Wt 77.1 kg
[~2020-09-29 07:33] MED LIST changes: +FAMOTIDINE20 MG ORAL
[2020-09-29] MEDS ORDERED: Metoclopramide 10mg/2ml Inj IVP ONE (08:00)
[2020-09-29] MEDS ORDERED: Acetaminophen (Non formulary) 100 ML IV ONE (08:00)
[2020-09-29] MEDS ORDERED: dexAMETHasone 10mg/ml Inj IV ONE (08:00)
--- NOTE | 2020-09-29 08:00 | Emergency Room Report ---
History of Present Illness General Chief Complaint: Headache Source: Patient Present Illness HPI Patient is a 59-year-old female past medical history of asthma who presents to the ER complaining of chest tightness, headaches and body aches on and off for the past week. Patient states that she has been using her nebulizer at home. She complains of a frontal headache has been progressively getting worse. She denies any fever or chills. She states that yesterday she started having some throat pain and feels like her lymph nodes are swollen. She denies any abdominal pain nausea or vomiting. She denies any sick contacts. She denies any rash or neck stiffness. 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 Patient History Reviewed Nursing Documentation: PMH: Agreed; PSxH: Agreed Nursing Documentation-PMH Past Medical History: No History, Except For Hx Cardiac Problems: No Hx Hypertension: No Hx Pacemaker: No Hx Asthma: Yes Hx COPD: No Hx Diabetes: No Hx Cancer: No Hx Gastrointestinal Problems: No Hx Dialysis: No Hx Neurological Problems: No Hx Cerebrovascular Accident: No Hx Seizures: No Review of Systems All Other Systems: negative except mentioned in HPI Physical Exam Vital Signs Date Time Temp Pulse Resp B/P (MAP) Pulse Ox O2 Delivery O2 Flow Rate FiO2 09/29/20 07:43 98.2 94 20 151/93 (112) 93 Room Air Sp02 EP Interpretation: reviewed, normal General Appearance: no apparent distress, alert, GCS 15, non-toxic Head: normocephalic, atraumatic Eyes: bilateral eye normal inspection, bilateral eye PERRL ENT: hearing grossly normal, normal pharynx, no angioedema, normal voice, pharyngeal erythema Neck: full range of motion, supple/symm/no masses Respiratory: no respiratory distress, no accessory muscle use, wheezing Cardiovascular #1: regular rate, rhythm Gastrointestinal: non tender, soft Rectal: deferred Genitourinary: no CVA tenderness Musculoskeletal: normal range of motion 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 Patient given morphine for her headache which she states has resolved. Patient given Decadron as well as breathing treatments. Her hypoxia has resolved. Her wheezing has resolved. She is in no acute respiratory distress. She is satting 100% on room air. Patient states that she feels improved and that her symptoms have resolved. Patient's troponin is negative. Chest x-ray demonstrates no acute cardiopulmonary pathology. I suspect the headache that the patient is presenting with is non-emergent in etiology. Meningitis and encephalitis were considered unlikely given patient has no significant fever, focal neurological deficits, petechiae, seizure like symptoms, nuchal rigidity, kernig sign, or brudzinski sign. Ischemic and hemorrhagic CVA also considered unlikely given no new focal neurological deficits, amnesia, slurred speech, or aphasia. In addition, patient reports gradual onset of GOLDBERG and not a sudden onset/severe GOLDBERG so I highly doubt SAH. laboratory findings reviewed and showed no acute abnormalities suggestive of infection. The patient was counseled that, though unlikely, the possibility of an emergent cause of headache may still be present and that the patient should return immediately if symptoms persists or worsen. I believe the patient is stable for discharge to follow-up with their PMD. Laboratory Tests Test 09/29/20 08:00 09/29/20 08:54 White Blood Count 5.7 K/UL (4.8-10.8) Red Blood Count 4.43 M/UL (4.20-5.40) Hemoglobin 13.7 G/DL (12.0-16.0) Hematocrit 42.6 % (37.0-47.0) Mean Corpuscular Volume 96 FL (80-99) Mean Corpuscular Hemoglobin 31.0 PG (27.0-31.0) Mean Corpuscular Hemoglobin Concent 32.2 G/DL (32.0-36.0) Red Cell Distribution Width 13.6 % (11.6-14.8) Platelet Count 262 K/UL (150-450) Mean Platelet Volume 6.9 FL (6.5-10.1) Neutrophils (%) (Auto) 43.6 % (45.0-75.0) L Lymphocytes (%) (Auto) 40.6 % (20.0-45.0) Monocytes (%) (Auto) 9.4 % (1.0-10.0) Eosinophils (%) (Auto) 3.7 % (0.0-3.0) H Basophils (%) (Auto) 2.7 % (0.0-2.0) H Prothrombin Time 10.4 SEC (9.30-11.50) Prothrombin Time INR 0.9 (0.9-1.1) Activated Partial Thromboplast Time 29 SEC (23-33) D-Dimer 0.56 mg/L FEU (0.00-0.49) H Urine Color Pale yellow Urine Appearance Clear Urine pH 6 (4.5-8.0) Urine Specific [place] 1.005 (1.005-1.035) Urine Protein Negative (NEGATIVE) Urine Glucose (UA) Negative (NEGATIVE) Urine Ketones Negative (NEGATIVE) Urine Blood Negative (NEGATIVE) Urine Nitrite Negative (NEGATIVE) Urine Bilirubin Negative (NEGATIVE) Urine Urobilinogen Normal MG/DL (0.0-1.0) Urine Leukocyte Esterase Negative (NEGATIVE) Sodium Level 139 MMOL/L (136-145) Potassium Level 4.2 MMOL/L (3.5-5.1) Chloride Level 104 MMOL/L (98-107) Carbon Dioxide Level 29 MMOL/L (21-32) Anion Gap 6 mmol/L (5-15) Blood Urea Nitrogen 24 mg/dL (7-18) H Creatinine 1.3 MG/DL (0.55-1.30) Estimated Glomerular Filtration Rate 50.7 mL/min (>60) Glucose Level 88 MG/DL (74-106) Lactic Acid Level 0.70 mmol/L (0.4-2.0) Calcium Level 9.4 MG/DL (8.5-10.1) Magnesium Level 2.2 MG/DL (1.8-2.4) Ferritin 122 NG/ML (8-388) Total Bilirubin 0.4 MG/DL (0.2-1.0) Aspartate Amino Transferase (AST) 24 U/L (15-37) Alanine Aminotransferase (ALT) 27 U/L (12-78) Alkaline Phosphatase 61 U/L (46-116) Lactate Dehydrogenase 202 U/L (81-234) Troponin I 0.000 ng/mL (0.000-0.056) C-Reactive Protein, Quantitative < 0.4 mg/dL (0.00-0.90) Pro-B-Type Natriuretic Peptide 45 pg/mL (0-125) Total Protein 7.5 G/DL (6.4-8.2) Albumin 3.8 G/DL (3.4-5.0) Globulin 3.7 g/dL Albumin/Globulin Ratio 1.0 (1.0-2.7) Urine Opiates Screen Pending Urine Barbiturates Screen Pending Phencyclidine (PCP) Screen Pending Urine Amphetamines Screen Pending Urine Benzodiazepines Screen Pending Urine Cocaine Screen Pending Urine Marijuana (THC) Screen Pending Arterial Blood pH 7.359 (7.350-7.450) Arterial Blood Partial Pressure CO2 47.4 mmHg (35.0-45.0) H Arterial Blood Partial Pressure O2 51.1 mmHg (75.0-100.0) L Arterial Blood HCO3 26.1 mmol/L (22.0-26.0) H Arterial Blood Oxygen Saturation 86.1 % (95-100) *L Arterial Blood Base Excess 0.2 (-2-2) Ricky Test Positive Microbiology Date/Time Source Procedure Growth Status 09/29/20 08:05 Nasopharynx SARS-CoV-2 Antigen (Rapid)(RIYA) - Final Complete EKG Diagnostic Results Troponin ordered: Yes When was troponin ordered?: Sep 29, 2020 EKG Time: 08:39 EP Interpretation: Verónica Proctor MD Rate: normal - 93 bpm Rhythm: NSR ST Segments: no acute changes ASA given to the pt in ED: No Rhythm Strip Diag. Results Rhythm Strip Time: 08:20 EP Interpretation: yes Rate: 93 bpm Rhythm: NSR, no PVC's, no ectopy Chest X-Ray Diagnostic Results Chest X-Ray Diagnostic Results : Chest X-Ray Ordered: Yes # of Views/Limited/Complete: 1 View Indication: Chest Pain EP Interpretation: Yes Interpretation: no consolidation, no effusion, no pneumothorax, other Impression: No acute disease Electronically Signed by: Verónica Proctor MD Last Vital Signs Date Time Temp Pulse Resp B/P (MAP) Pulse Ox O2 Delivery O2 Flow Rate FiO2 09/29/20 07:43 98.2 94 20 151/93 (112) 93 Room Air Disposition: HOME, SELF-CARE Condition: Stable Scripts Dexamethasone* (DECADRON*) 2 Mg Tablet 10 MG PO DAILY for 3 Days, TAB Prov: Verónica Proctor M.D. 09/29/20 Azithromycin* (ZITHROMAX*) 250 Mg Tablet 250 MG ORAL DAILY, #6 TAB 0 Refills Take two tables once daily for 1 day, then one tablet once daily for 4 days. Prov: Verónica Proctor M.D. 09/29/20 Albuterol Sulfate* (ALBUTEROL SULFATE HHN*) 2.5 Mg/3 Ml Vial.neb 2.5 MG HHN Q4H PRN for Shortness of Breath, #25 VIAL Prov: Verónica Proctor M.D. 09/29/20 Referrals: NOT CHOSEN IPA/,REFERRING (PCP) Additional Instructions: The patient was provided with discharge instructions, notified to follow-up with a primary care doctor and or specialist in the next 24-48 hours, and to return to the ED if they have worsening of their symptoms. Please note that this report is being documented using LiquidText technology. This can lead to erroneous entry secondary to incorrect interpretation by the dictating instrument. Verónica Proctor M.D. Sep 29, 2020 08:00
[2020-09-29] MEDS: Albuterol/Ipratropium 3ml neb HHN SCH (08:31)
[2020-09-29] MEDS ORDERED: DiphenhydrAMINE 50mg/ml Inj IVP ONE (08:45)
[2020-09-29] MEDS ORDERED: Morphine Sulfate 4mg/ml Inj (IV USE ONLY) IVP ONE (08:45)
--- NOTE | 2020-09-29 08:55 | NUR ---
Patient presents to the ER with c/o chest tightness, headaches and body aches on and off for the past week. Patient has a history of asthma. Patient states that she has been using her nebulizer at home. She complains of a frontal headache that has been getting progressively worse. She states that yesterday she started having some throat pain and feels like her lymph nodes are swollen. Denies abdominal pain, N/V.
[2020-09-29 08:58] LABS: BASOPHILS % (AUTO) 2.7 % (0.0-2.0); EOSINOPHILS % (AUTO) 3.7 % (0.0-3.0); HEMATOCRIT 42.6 % (37.0-47.0); HEMOGLOBIN 13.7 G/DL (12.0-16.0); LYMPHOCYTES % (AUTO) 40.6 % (20.0-45.0); MEAN CORPUSCULAR VOLUME 96 FL (80-99); MONOCYTES % (AUTO) 9.4 % (1.0-10.0); NEUTROPHILS % (AUTO) 43.6 % (45.0-75.0); PLATELET COUNT 262 K/UL (150-450); RED BLOOD COUNT 4.43 M/UL (4.20-5.40); RED CELL DISTRIBUTION WIDTH 13.6 % (11.6-14.8); WHITE BLOOD COUNT 5.7 K/UL (4.8-10.8)
[2020-09-29 08:59] LABS: APPEARANCE,URINE CLEAR; BILIRUBIN, URINE NEGATIVE (NEGATIVE); COLOR,URINE PALE YELLOW; GLUCOSE, URINE (UA) NEGATIVE (NEGATIVE); KETONES,URINE NEGATIVE (NEGATIVE); LEUKOCYTE ESTERASE ,URINE NEGATIVE (NEGATIVE); NITRITE,URINE NEGATIVE (NEGATIVE); PH,URINE 6 (4.5-8.0); PROTEIN,URINE NEGATIVE (NEGATIVE); UROBILINOGEN,URINE NORMAL MG/DL (0.0-1.0)
[2020-09-29 09:04] LABS: INR 0.9 (0.9-1.1)
--- NOTE | 2020-09-29 09:06 | NUR ---
CXR completed Breathing Tx completed
[2020-09-29 09:12] LABS: ANION GAP 6 mmol/L (5-15); BLOOD UREA NITROGEN 24 mg/dL (7-18); CALCIUM 9.4 MG/DL (8.5-10.1); CARBON DIOXIDE 29 MMOL/L (21-32); CHLORIDE 104 MMOL/L (98-107); CREATININE 1.3 MG/DL (0.55-1.30); POTASSIUM 4.2 MMOL/L (3.5-5.1); SODIUM 139 MMOL/L (136-145)
[2020-09-29 09:30] LABS: ALANINE AMINOTRANSFERASE 27 U/L (12-78); ALBUMIN 3.8 G/DL (3.4-5.0); ALKALINE PHOSPHATASE 61 U/L (46-116); ASPARTATE AMINO TRANSFERASE 24 U/L (15-37); BILIRUBIN,TOTAL 0.4 MG/DL (0.2-1.0); FERRITIN 122 NG/ML (8-388); LACTATE DEHYDROGENASE 202 U/L (81-234)
--- NOTE | 2020-09-29 09:39 | Diagnostic Imaging Report ---
Indication: Reason For Exam: SOB Technique: XRAY Chest 1v. Comparison: 07/24/2020 Findings: The cardiomediastinal silhouette is stable. There are no acute infiltrates. Impression: No acute abnormality. .
[2020-09-29] MEDS ORDERED: DEXAMETHASONE2 MG PO (09:40)
[2020-09-29] MEDS ORDERED: ALBUTEROL2.5 MG/3 M HHN (09:40)
[2020-09-29] MEDS ORDERED: ZITHROMAX250 MG ORAL (09:40)
[2020-09-29 09:55] VITALS: BP 141/86
== END 2020-09-29 09:55 | disposition home or self-care (01) ==
LOC: EMR 07:58
DX: J45.901 Unspecified asthma with (acute) exacerbation (principal); R51.9 Headache, unspecified; Z88.6 Allergy status to analgesic agent
CPT/HCPCS: 36415; 71045; 80053; 80307; 81003; 82728; 82803; 83605; 83615; 83735; 83880; 84484; 85025; 85379; 85610; 85730; 86140; 93005; 96361; 96374; 96375; J0131; J1200; J2270; J2765; J7030; U0002; Z7502; 99284; J7620